=== PATIENT | male | born 1945 | race Caucasian/White ===

== ENCOUNTER 2019-06-17 05:26 | Inpatient (IN) | payer OTHER, MEDICARE ==
--- NOTE | 2019-06-17 06:03 | PDOC ---
History of Present Illness - General Chief Complaint: Nausea/Vomiting Stated Complaint: N/V/D Time Seen by Provider: 06/17/19 06:02 History Source: Patient Exam Limitations: No Limitations - History of Present Illness Initial Comments: 06/17/19 06:18 This is a 73-year-old male who comes in complaining of nausea vomiting and diarrhea times the last 3-4 hours. Patient on arrival was noted to have dry mucous membranes and was quite tachycardic to 143. Patient also was noted to have some shaking chills and temperature was 102.7. Patient denies any abdominal pain chest pain or shortness of breath. Patient is complaining of shaking and generalized weakness. Patient denies any other family members with similar symptoms. Patient is a type II diabetic on both metformin and insulin. Allergies: as per nursing notes Past Medical History: none Social history: Lives with family. No smoking. No alcohol. No illicit drugs. Surgical history: None General: No fevers or chills, no weakness, no weight loss HEENT: No change in vision. No sore throat,. No ear pain CardioVascular: no chest discomfort. No shortness of breath Respiratory:No cough, or wheezing. Gastrointestinal: no nausea, vomiting, diarrhea or constipation, No rectal bleeding Genitourinary: No dysuria, hematuria, or frequency Musculoskeletal: No joint or muscle pain or swelling Neurologic: No headache, vertigo, dizziness or loss of consciousness Psychiatric: nor depression Skin: No rashes or easy bruising Endocrine: no increased thirst or abnormal weight change Allergic: no skin or latex allergy All other systems reviewed and normal Exam: General: Well-nourished well-developed individual, no acute distress HEENT: Throat: Normal, tonsils normal, no erythema or exudate Neck: Supple, no meningeal signs, no lymphadenopathy Eyes::Pupils equal reactive and round, extraocular motion intact Chest: Nontender to palpation Cardiac: S1-S2 normal, regular rate and rhythm, no murmurs rubs or gallops Respiratory: Lungs clear to auscultation bilateral Abdomen: Soft, nondistended, normal bowel sounds, there is no tenderness on palpation diffusely Extremities: Warm, dry, no cyanosis, clubbing, or edema Skin: No rashes Neuro: Alert and oriented x3, CN II - XII intact, nonfocal exam with normal strength, normal sensation, normal reflexes, normal gait, Psych: Normal mood and affect Assessment and plan: This is a 73-year-old male who has fever of 102.7 is tachycardic with nausea vomiting and diarrhea. Patient being given fluids, Tylenol, Zofran, Sepsis workup initiated including cultures, lactic acid is venous blood gas Past History - Past Medical History Allergies/Adverse Reactions: Allergies Allergy/AdvReac Type Severity Reaction Status Date / Time levofloxacin [From Levaquin] Allergy Verified 06/17/19 05:30 Home Medications: Ambulatory Orders Aspirin [ASA -] 81 mg PO DAILY 07/31/12 Atorvastatin Ca [Lipitor] 20 mg PO HS 07/31/12 Insulin (Levemir) [Levemir Flexpen -] 13 units SQ BID 07/31/12 Lisinopril [Prinivil] 20 mg PO DAILY 07/31/12 Sitagliptin Phos/Metformin HCl [Janumet 50-1,000 mg Tablet] 1 each PO BID #0 Amlodipine Besylate 5 mg PO DAILY 06/17/19 Budesonide [Entocort EC] 9 mg PO DAILY 06/17/19 Chlorthalidone 25 mg PO DAILY 06/17/19 Insulin Lispro [Humalog] 4 unit SQ AM 06/17/19 Insulin Lispro [Humalog] 6 unit SQ BID 06/17/19 Mesalamine [Asacol Hd -] 1,600 mg PO TID 06/17/19 Omeprazole 40 mg PO DAILY 06/17/19 COPD: No Diabetes: Yes Disorders: Yes (CROHNS) HTN: Yes Hypercholesterolemia: Yes - Suicide/Smoking/Psychosocial Hx Smoking Status: Yes Smoking History: Never smoked Have you smoked in the past 12 months: Yes Number of Cigarettes Smoked Daily: 20 'Breaking Loose' booklet given: 08/21/13 Hx Alcohol Use: Yes (occasional) Substance Use Type: None *Physical Exam - Vital Signs Last Vital Signs Temp Pulse Resp BP Pulse Ox 98.2 F 143 H 24 H 110/84 94 L 06/17/19 05:46 06/17/19 05:46 06/17/19 05:46 06/17/19 05:46 06/17/19 05:46 ED Treatment Course - LABORATORY CBC & Chemistry Diagram: 06/17/19 16:27 06/17/19 16:27 *DC/Admit/Observation/Transfer Diagnosis at time of Disposition: RLL pneumonia Qualifiers: Pneumonia type: due to unspecified organism Qualified Code(s): J18.1 - Lobar pneumonia, unspecified organism Diabetes mellitus Qualifiers: Diabetes mellitus type: type 2 Diabetes mellitus detention insulin use: unspecified detention insulin use status - Discharge Dispostion Condition at time of disposition: Stable - Referrals - Patient Instructions - Post Discharge Activity
[2019-06-17] MEDS ORDERED: SODIUM CHLORIDE 1,891 ML IV ONE (06:06)
[2019-06-17] MEDS ORDERED: ACETAMINOPHEN 1000 MG/100 ML VIAL (NON FORMULARY) IVPB ONE (06:09)
[2019-06-17] MEDS ORDERED: ACETAMINOPHEN INJECTION 100 ML IVPB ONE (06:21)
[2019-06-17] MEDS ORDERED: ONDANSETRON 4 MG/2 ML VIAL IVPB ONE (06:23)
[2019-06-17] MEDS ORDERED: ONDANSETRON 4 MG/2 ML VIAL ONE (06:29)
[2019-06-17 07:22] LABS: VENOUS PC02 29 mmHg (38-52); VENOUS PO2 < 49 mmHg (28-48)
[2019-06-17 07:25] LABS: BASO % 0.3 % (0-2.0); EOS % 0.2 % (0-4.5); HEMATOCRIT 42.3 % (35.4-49); HEMOGLOBIN 14.5 GM/dL (11.7-16.9); LYMPH % 9.2 % (8-40); MCH 31.9 pg (25.7-33.7); MCHC 34.2 g/dl (32.0-35.9); MEAN CELL VOLUME 93.3 fl (80-96); MEAN PLT VOLUME 8.7 fl (7.5-11.1); MONO % 2.4 % (3.8-10.2); NEUT % 87.9 % (42.8-82.8); PLATELET COUNT 350 K/MM3 (134-434); RBC 4.54 M/mm3 (4.00-5.60); RDW 13.3 % (11.9-15.9); WHITE BLOOD COUNT 11.9 K/mm3 (4.0-10.0)
[2019-06-17 07:32] LABS: URINE APPEARANCE CLEAR; URINE BILIRUBIN NEGATIVE (NEGATIVE); URINE COLOR YELLOW; URINE GLUCOSE (UA) NEGATIVE (NEGATIVE); URINE KETONE TRACE (NEGATIVE); URINE LEUK ESTERASE NEGATIVE (NEGATIVE); URINE NITRITE NEGATIVE (NEGATIVE); URINE PROTEIN NEGATIVE (NEGATIVE); URINE UROBILINOGEN 0.2 mg/dL (0.2-1.0)
[2019-06-17] MEDS ORDERED: SODIUM CHLORIDE 1,000 ML IV STA (07:42)
[2019-06-17] MEDS ORDERED: CEFTRIAXONE 1,000 MG in DEXTROSE 5%-WATER - 50 ML IVPB ONE (07:55)
[2019-06-17] MEDS ORDERED: cefTRIAXone SODIUM 1 GM VIAL ONE (07:56)
[2019-06-17] MEDS ORDERED: AZITHROMYCIN IVPB 500 MG in DEXTROSE 5%-WATER - 250 ML IVPB ONE (07:56)
[2019-06-17 07:57] LABS: ALBUMIN 3.3 g/dl (3.4-5.0); ALK PHOS 59 U/L (45-117); ANION GAP 10 MMOL/L (8-16); BILIRUBIN,TOTAL 0.6 mg/dL (0.2-1); BLOOD UREA NITROGEN 31.6 mg/dL (7-18); CALCIUM 9.8 mg/dL (8.5-10.1); CHLORIDE 103 mmol/L (98-107); CO2 25 mmol/L (21-32); CREATININE 1.5 mg/dL (0.55-1.3); GLUCOSE,RANDOM 133 mg/dL (74-106); POTASSIUM 4.4 mmol/L (3.5-5.1); SGOT/AST 17 U/L (15-37); SGPT/ALT 24 U/L (13-61); SODIUM 138 mmol/L (136-145); TOT PROT 6.1 g/dl (6.4-8.2)
[2019-06-17] MEDS: SODIUM CHLORIDE 1,000 ML IV SCH (08:03)
[2019-06-17] MEDS ORDERED: AZITHROMYCIN 500 MG VIAL IVPB ONE (08:05)
--- NOTE | 2019-06-17 08:11 | PDOC ---
*Physical Exam - Vital Signs Last Vital Signs Temp Pulse Resp BP Pulse Ox 97.6 F 109 H 21 H 119/60 95 06/17/19 07:25 06/17/19 07:25 06/17/19 07:25 06/17/19 07:25 06/17/19 07:25 - Physical Exam General Appearance: Yes: Nourished, Appropriately Dressed, Moderate Distress HEENT: positive: Pharynx Normal (Mildly hyperemic pharynx ) Neck: positive: Supple Respiratory/Chest: positive: Rhonchi (Wheezing and ronchi right lower base), Wheezing ED Treatment Course - LABORATORY CBC & Chemistry Diagram: 06/17/19 06:15 06/17/19 06:15 - ADDITIONAL ORDERS Additional order review: Laboratory Results 06/17/19 06/17/19 06/17/19 07:43 06:30 06:15 PTT (Actin FS) VBG pH POC VBG pCO2 POC VBG pO2 VBG HCO3 VBG O2 Sat (Marcos) VBG Base Excess Sodium Potassium Chloride Carbon Dioxide Anion Gap BUN Creatinine Est GFR (CKD-EPI)AfAm Est GFR (CKD-EPI)NonAf POC Glucometer 89 Random Glucose Lactic Acid Calcium Total Bilirubin AST ALT Alkaline Phosphatase Creatine Kinase Troponin I Total Protein Albumin Urine Color Yellow Cancelled Urine Appearance Clear Cancelled Urine pH 5.0 Cancelled Ur Specific [place] 1.019 Urine Protein Negative Cancelled Urine Glucose (UA) Negative Cancelled Urine Ketones Trace H Cancelled Urine Blood Negative Cancelled Urine Nitrite Negative Cancelled Urine Bilirubin Negative Cancelled Urine Urobilinogen 0.2 Cancelled Ur Leukocyte Esterase Negative Cancelled 06/17/19 06/17/19 06/17/19 06:15 06:15 06:15 PTT (Actin FS) VBG pH 7.50 H POC VBG pCO2 29 L POC VBG pO2 < 49 H VBG HCO3 23 VBG O2 Sat (Marcos) 84.5 H VBG Base Excess 1.8 Sodium Potassium Chloride Carbon Dioxide Anion Gap BUN Creatinine Est GFR (CKD-EPI)AfAm Est GFR (CKD-EPI)NonAf POC Glucometer Random Glucose Lactic Acid 5.1 H* Calcium Total Bilirubin AST ALT Alkaline Phosphatase Creatine Kinase 96 Troponin I Total Protein Albumin Urine Color Urine Appearance Urine pH Ur Specific [place] Urine Protein Urine Glucose (UA) Urine Ketones Urine Blood Urine Nitrite Urine Bilirubin Urine Urobilinogen Ur Leukocyte Esterase 06/17/19 06/17/19 06:15 06:15 PTT (Actin FS) 27.4 VBG pH POC VBG pCO2 POC VBG pO2 VBG HCO3 VBG O2 Sat (Marcos) VBG Base Excess Sodium 138 Potassium 4.4 Chloride 103 Carbon Dioxide 25 Anion Gap 10 BUN 31.6 H Creatinine 1.5 H Est GFR (CKD-EPI)AfAm 53.14 Est GFR (CKD-EPI)NonAf 45.85 POC Glucometer Random Glucose 133 H Lactic Acid Calcium 9.8 Total Bilirubin 0.6 AST 17 ALT 24 Alkaline Phosphatase 59 Creatine Kinase 100 Troponin I < 0.02 Total Protein 6.1 L Albumin 3.3 L Urine Color Urine Appearance Urine pH Ur Specific [place] Urine Protein Urine Glucose (UA) Urine Ketones Urine Blood Urine Nitrite Urine Bilirubin Urine Urobilinogen Ur Leukocyte Esterase 06/17/19 06/17/19 07:43 06:15 RBC 4.54 MCV 93.3 MCHC 34.2 RDW 13.3 MPV 8.7 Neutrophils % 87.9 H Lymphocytes % 9.2 Monocytes % 2.4 L Eosinophils % 0.2 Basophils % 0.3 POC Glucometer 89 - RADIOLOGY Chest X-Ray Result: Pneumonia Radiograph Interpretation: same like ours 06/17/19 08:07 - Medications Given in the ED: ED Medications Discontinued Medications Generic Name Dose Route Start Last Admin Trade Name Yang PRN Reason Stop Dose Admin Acetaminophen 1,000 mg 06/17/19 06:09 06/17/19 06:28 Ofirmev Injection - IVPB 06/17/19 06:10 1,000 mg ONCE ONE Administration Sodium Chloride 1,891 mls @ 945.5 mls/hr 06/17/19 06:06 06/17/19 06:00 Normal Saline - 30 ml/kg infuse over 2 hr (1891 ml) 06/17/19 08:05 945.5 mls/hr IV Administration ONCE ONE Ondansetron HCl 8 mg 06/17/19 06:23 06/17/19 06:31 Zofran Injection IVPB 06/17/19 06:24 8 mg ONCE ONE Administration Progress Note - Progress Note Progress Note: After my exam and CXR review, blood work included, dg of RLL Pneumonia, DM *DC/Admit/Observation/Transfer Diagnosis at time of Disposition: RLL pneumonia Qualifiers: Pneumonia type: due to unspecified organism Qualified Code(s): J18.1 - Lobar pneumonia, unspecified organism Diabetes mellitus Qualifiers: Diabetes mellitus type: type 2 Diabetes mellitus ferry terminal agent insulin use: unspecified ferry terminal agent insulin use status - Discharge Dispostion Condition at time of disposition: Stable Decision to Admit order: Yes - Referrals - Patient Instructions - Post Discharge Activity
[2019-06-17 08:37] LABS: INR 1.01 (0.83-1.09); PROTHROMBIN TIME (PATIENT) 11.9 SEC (9.7-13.0)
[2019-06-17] MEDS ORDERED: SODIUM CHLORIDE 500 ML IV STA (10:45)
--- NOTE | 2019-06-17 10:52 | HP ---
CHIEF COMPLAINT: Fever, chills, cough PCP: Shona Christensen HISTORY OF PRESENT ILLNESS: 73 year-old male with a PMH significant for HTN, Type II IDDM, and Crohn's disease who presented to the ED for evaluation of cough, fever, and shaking chills. Patient was seen by PCP 5 days ago for cough. CXR was negative at that time and he was not started on antibiotics. He continued with a mild, dry cough but otherwise felt well until this morning at 2:00a.m when he awoke, vomited x 6 episodes, loose, light-color stools x 4 episodes, and developed shaking chills. His temp at home was 102.7. His brought him to the ED. ER course was notable for: (1) T102.7, p143, WBC 11.9k, RR 24, RML infiltrate on CXR, lactic acid 5.1 (2) NS x 2L (3) Ceftriaxone x 1; azithro x 1 Recent Travel: No PAST MEDICAL HISTORY: Hypertension Type II IDDM Crohn's disease Polio w/right leg atrophy Multiple right ankle fractures Right patellar fracture PAST SURGICAL HISTORY: Social History: Smoking: on and off smoked for 28 years, quit ~ 3 years ago Alcohol: no Drugs: no Allergies levofloxacin [From Levaquin] Allergy (Verified 06/17/19 05:30) HOME MEDICATIONS: Home Medications Medication Instructions Recorded Aspirin [ASA -] 81 mg PO DAILY 07/31/12 Atorvastatin Ca [Lipitor] 20 mg PO HS 07/31/12 Insulin (Levemir) [Levemir Flexpen 13 units SQ BID 07/31/12 -] Lisinopril [Prinivil] 20 mg PO DAILY 07/31/12 Sitagliptin Phos/Metformin HCl 1 each PO BID #0 08/21/13 [Janumet 50-1,000 mg Tablet] Amlodipine Besylate 5 mg PO DAILY 06/17/19 Budesonide [Entocort EC] 9 mg PO DAILY 06/17/19 Chlorthalidone 25 mg PO DAILY 06/17/19 Insulin Lispro [Humalog] 4 unit SQ AM 06/17/19 Insulin Lispro [Humalog] 6 unit SQ BID 06/17/19 Mesalamine [Asacol Hd -] 1,600 mg PO TID 09/20/19 Omeprazole 40 mg PO DAILY 06/17/19 REVIEW OF SYSTEMS CONSTITUTIONAL: +fever, chills, profound weakness Absent: fever, chills, diaphoresis, generalized weakness, malaise, loss of appetite, weight change HEENT: Absent: rhinorrhea, nasal congestion, throat pain, throat swelling, difficulty swallowing, mouth swelling, ear pain, eye pain, visual changes CARDIOVASCULAR: Absent: chest pain, syncope, palpitations, irregular heart rate, lightheadedness , peripheral edema RESPIRATORY: +tachypnea, SOB Absent: cough, shortness of breath, dyspnea with exertion, orthopnea, wheezing, stridor, hemoptysis GASTROINTESTINAL: +nausea, vomiting, diarrhea Absent: abdominal pain, abdominal distension, nausea, vomiting, diarrhea, constipation, melena, hematochezia GENITOURINARY: Absent: dysuria, frequency, urgency, hesitancy, hematuria, flank pain, genital pain MUSCULOSKELETAL: Absent: myalgia, arthralgia, joint swelling, back pain, neck pain SKIN: Absent: rash, itching, pallor HEMATOLOGIC/IMMUNOLOGIC: Absent: easy bleeding, easy bruising, lymphadenopathy, frequent infections ENDOCRINE: Absent: unexplained weight gain, unexplained weight loss, heat intolerance, cold intolerance NEUROLOGIC: Absent: headache, focal weakness or paresthesias, dizziness, unsteady gait, seizure, mental status changes, bladder or bowel incontinence PSYCHIATRIC: Absent: anxiety, depression, suicidal or homicidal ideation, hallucinations. PHYSICAL EXAMINATION Vital Signs - 24 hr 06/17/19 06/17/19 06/17/19 05:46 06:06 06:30 Temperature 98.2 F 102.7 F H Pulse Rate 143 H Pulse Rate [ 115 H Apical] Respiratory 24 H 24 H Rate Blood Pressure 110/84 Blood Pressure 117/61 [Arm] O2 Sat by Pulse 94 L 94 L Oximetry (%) 06/17/19 06/17/19 06/17/19 06:44 06:59 07:25 Temperature 97.6 F Pulse Rate Pulse Rate [ 115 H 114 H 109 H Apical] Respiratory 20 25 H 21 H Rate Blood Pressure Blood Pressure 116/57 L 110/61 119/60 [Arm] O2 Sat by Pulse 94 L 94 L 95 Oximetry (%) 06/17/19 06/17/19 08:15 08:45 Temperature Pulse Rate Pulse Rate [ 111 H 110 H Apical] Respiratory 18 21 H Rate Blood Pressure Blood Pressure 117/61 112/60 [Arm] O2 Sat by Pulse 93 L 96 Oximetry (%) GENERAL: Awake, alert, and fully oriented. Ill-appearing. HEAD: Normal with no signs of trauma. EYES: Pupils equal, round and reactive to light, extraocular movements intact, sclera anicteric, conjunctiva clear. No lid lag. LUNGS: Diminished breath sounds and rales on the right HEART: Regular rate and rhythm, S1 and S2 ABDOMEN: Soft, nontender, not distended UPPER EXTREMITIES: 2+ pulses, warm, well-perfused. No cyanosis. No clubbing. No peripheral edema. LOWER EXTREMITIES: 2+ pulses, warm, well-perfused. No calf tenderness. No peripheral edema. Right leg is smaller than left, rotated outward NEUROLOGICAL: Cranial nerves II-XII intact. Normal speech. Laboratory Results - last 24 hr 06/17/19 06/17/19 06/17/19 06:15 06:15 06:15 WBC 11.9 H RBC 4.54 Hgb 14.5 Hct 42.3 MCV 93.3 MCH 31.9 MCHC 34.2 RDW 13.3 Plt Count 350 MPV 8.7 Absolute Neuts (auto) 10.4 H Neutrophils % 87.9 H Lymphocytes % 9.2 Monocytes % 2.4 L Eosinophils % 0.2 Basophils % 0.3 Nucleated RBC % 0 PT with INR INR PTT (Actin FS) 27.4 VBG pH POC VBG pCO2 POC VBG pO2 VBG HCO3 VBG O2 Sat (Marcos) VBG Base Excess Sodium 138 Potassium 4.4 Chloride 103 Carbon Dioxide 25 Anion Gap 10 BUN 31.6 H Creatinine 1.5 H Est GFR (CKD-EPI)AfAm 53.14 Est GFR (CKD-EPI)NonAf 45.85 POC Glucometer Random Glucose 133 H Lactic Acid Calcium 9.8 Total Bilirubin 0.6 AST 17 ALT 24 Alkaline Phosphatase 59 Creatine Kinase 100 Troponin I < 0.02 Total Protein 6.1 L Albumin 3.3 L Urine Color Urine Appearance Urine pH Ur Specific [place] Urine Protein Urine Glucose (UA) Urine Ketones Urine Blood Urine Nitrite Urine Bilirubin Urine Urobilinogen Ur Leukocyte Esterase 06/17/19 06/17/19 06/17/19 06:15 06:15 06:15 WBC RBC Hgb Hct MCV MCH MCHC RDW Plt Count MPV Absolute Neuts (auto) Neutrophils % Lymphocytes % Monocytes % Eosinophils % Basophils % Nucleated RBC % PT with INR 11.90 INR 1.01 PTT (Actin FS) VBG pH 7.50 H POC VBG pCO2 29 L POC VBG pO2 < 49 H VBG HCO3 23 VBG O2 Sat (Marcos) 84.5 H VBG Base Excess 1.8 Sodium Potassium Chloride Carbon Dioxide Anion Gap BUN Creatinine Est GFR (CKD-EPI)AfAm Est GFR (CKD-EPI)NonAf POC Glucometer Random Glucose Lactic Acid 5.1 H* Calcium Total Bilirubin AST ALT Alkaline Phosphatase Creatine Kinase Troponin I Total Protein Albumin Urine Color Urine Appearance Urine pH Ur Specific [place] Urine Protein Urine Glucose (UA) Urine Ketones Urine Blood Urine Nitrite Urine Bilirubin Urine Urobilinogen Ur Leukocyte Esterase 06/17/19 06/17/19 06/17/19 06:15 06:15 06:30 WBC RBC Hgb Hct MCV MCH MCHC RDW Plt Count MPV Absolute Neuts (auto) Neutrophils % Lymphocytes % Monocytes % Eosinophils % Basophils % Nucleated RBC % PT with INR INR PTT (Actin FS) VBG pH POC VBG pCO2 POC VBG pO2 VBG HCO3 VBG O2 Sat (Marcos) VBG Base Excess Sodium Potassium Chloride Carbon Dioxide Anion Gap BUN Creatinine Est GFR (CKD-EPI)AfAm Est GFR (CKD-EPI)NonAf POC Glucometer Random Glucose Lactic Acid Calcium Total Bilirubin AST ALT Alkaline Phosphatase Creatine Kinase 96 Troponin I Total Protein Albumin Urine Color Cancelled Yellow Urine Appearance Cancelled Clear Urine pH Cancelled 5.0 Ur Specific [place] 1.019 Urine Protein Cancelled Negative Urine Glucose (UA) Cancelled Negative Urine Ketones Cancelled Trace H Urine Blood Cancelled Negative Urine Nitrite Cancelled Negative Urine Bilirubin Cancelled Negative Urine Urobilinogen Cancelled 0.2 Ur Leukocyte Esterase Cancelled Negative 06/17/19 07:43 WBC RBC Hgb Hct MCV MCH MCHC RDW Plt Count MPV Absolute Neuts (auto) Neutrophils % Lymphocytes % Monocytes % Eosinophils % Basophils % Nucleated RBC % PT with INR INR PTT (Actin FS) VBG pH POC VBG pCO2 POC VBG pO2 VBG HCO3 VBG O2 Sat (Marcos) VBG Base Excess Sodium Potassium Chloride Carbon Dioxide Anion Gap BUN Creatinine Est GFR (CKD-EPI)AfAm Est GFR (CKD-EPI)NonAf POC Glucometer 89 Random Glucose Lactic Acid Calcium Total Bilirubin AST ALT Alkaline Phosphatase Creatine Kinase Troponin I Total Protein Albumin Urine Color Urine Appearance Urine pH Ur Specific [place] Urine Protein Urine Glucose (UA) Urine Ketones Urine Blood Urine Nitrite Urine Bilirubin Urine Urobilinogen Ur Leukocyte Esterase ASSESSMENT/PLAN 73 year-old male with a PMH significant for HTN, Type II IDDM, and Crohn's disease. Admitted for severe sepsis likely secondary to community-acquired pneumonia. Severe sepsis likely secondary to community acquired pneumonia --T102.7, p143, WBC 11.9k, RR 24, RML infiltrate on CXR, lactic acid 5.1 --fluid resuscitated 2.5L NS --given ceftriaxone and azithro in ED, switched to Zosyn --repeat lactic acid --repeat labs --repeat CXR --CT chest, abdomen, pelvis Hypertension --hold anti-hypertensives due to sepsis Type II IDDM --Novolog sliding scale coverage --no appetite, not eating; fingersticks q4h Crohn's disease --not in active flare --takes budesonide, a corticosteroid equivalent; not on formulary; ask family to bring in --continue mesalamine FEN Fluids: NS @ 75mL/hr Electrolytes: replete as indicated Nutrition: diabetic diet DVT prophylaxis: subq heparin Dispo: continues to require inpatient care. Full code. Visit type - Emergency Visit Emergency Visit: Yes ED Registration Date: 06/17/19 Care time: The patient presented to the Emergency Department on the above date and was hospitalized for further evaluation of their emergent condition. - New Patient This patient is new to me today: Yes Date on this admission: 06/18/19 - Critical Care Critical Care patient: Yes Total Critical Care Time (in minutes): 120 Critical Care Statement: The care of this patient involved high complexity decision making to prevent further life threatening deterioration of the patient 's condition and/or to evaluate & treat vital organ system(s) failure or risk of failure.
[2019-06-17 13:22] LABS: ARTERIAL BLD GAS O2 SATURATION 97.1 % (95-98); ARTERIAL BLOOD GAS PO2 89.4 mmHg (80-100); ARTERIAL BLOOD GAS pH 7.45 (7.35-7.45)
[2019-06-17] MEDS: PIPERACILLIN/TAZOB 3.375 GM 3.375 GM in DEXTROSE 5%-WATER - 50 ML IVPB SCH ×2 (13:30→21:49)
--- NOTE | 2019-06-17 14:09 | EKG ---
Test Reason : Blood Pressure : / mmHG Vent. Rate : 115 BPM Atrial Rate : 115 BPM P-R Int : 134 ms QRS Dur : 066 ms QT Int : 306 ms P-R-T Axes : 047 059 033 degrees QTc Int : 423 ms SINUS TACHYCARDIA OTHERWISE NORMAL ECG NO PREVIOUS ECGS AVAILABLE Confirmed by MEL AADME MD ([id number]) on 06/17/2019 2:09:35 PM Referred By: TIFFANY GUZMAN Confirmed By:MEL ADAME MD
--- NOTE | 2019-06-17 15:18 | CON.ID ---
Consult Consult Specialty:: infectious diseases Referred by:: Naya Reason for Consultation:: sepsis,pneumonia - History of Present Illness Chief Complaint: sob ,cough,fever,chills History of Present Illness: 73 year-old male with a PMH significant for HTN, Type II IDDM, and Crohn's disease on prednisone, admitted because of cough, fever, and shaking chills. Patient was seen by PCP last week for cough. CXR was negative at that time and he was not started on antibiotics. Last night patient spiked a fever to 102.7 and had shaking chills and became sob. patient also mentions that he has been having gerd symptoms for some time currently patient feels better has been given zosyn - History Source History Provided By: Patient Limitations to Obtaining History: No Limitations - Past Medical History Cardio/Vascular: Yes: HTN Gastrointestinal: Yes: Crohn's Disease Endocrine: Yes: Diabetes Mellitus - Alcohol/Substance Use Hx Alcohol Use: Yes (occasional) - Smoking History Smoking history: Never smoked Have you smoked in the past 12 months: Yes Aproximately how many cigarettes per day: 20 Home Medications - Allergies Allergies/Adverse Reactions: Allergies Allergy/AdvReac Type Severity Reaction Status Date / Time levofloxacin [From Levaquin] Allergy Verified 06/17/19 05:30 - Home Medications Home Medications: Ambulatory Orders Aspirin [ASA -] 81 mg PO DAILY 07/31/12 Atorvastatin Ca [Lipitor] 20 mg PO HS 07/31/12 Insulin (Levemir) [Levemir Flexpen -] 13 units SQ BID 07/31/12 Lisinopril [Prinivil] 20 mg PO DAILY 07/31/12 Sitagliptin Phos/Metformin HCl [Janumet 50-1,000 mg Tablet] 1 each PO BID #0 Amlodipine Besylate 5 mg PO DAILY 06/17/19 Budesonide [Entocort EC] 9 mg PO DAILY 06/17/19 Chlorthalidone 25 mg PO DAILY 06/17/19 Insulin Lispro [Humalog] 4 unit SQ AM 06/17/19 Insulin Lispro [Humalog] 6 unit SQ BID 06/17/19 Mesalamine [Asacol Hd -] 1,600 mg PO TID 06/17/19 Omeprazole 40 mg PO DAILY 06/17/19 Review of Systems - Review of Systems Constitutional: reports: Chills, Fever Eyes: reports: No Symptoms HENT: reports: No Symptoms Neck: reports: No Symptoms Cardiovascular: reports: No Symptoms Respiratory: reports: Cough, SOB, Other Gastrointestinal: reports: No Symptoms Genitourinary: reports: No Symptoms Musculoskeletal: reports: No Symptoms Integumentary: reports: No Symptoms Neurological: reports: No Symptoms Endocrine: reports: No Symptoms Hematology/Lymphatic: reports: No Symptoms Psychiatric: reports: No Symptoms Physical Exam Vital Signs: Vital Signs Temperature 97.9 F 06/17/19 13:45 Pulse Rate 93 H 06/17/19 13:45 Respiratory Rate 17 06/17/19 13:45 Blood Pressure 106/60 06/17/19 13:45 O2 Sat by Pulse Oximetry (%) 94 L 06/17/19 13:45 Constitutional: Yes: Calm, Mild Distress Eyes: Yes: Conjunctiva Clear HENT: Yes: Atraumatic, Normocephalic Neck: Yes: Supple, Trachea Midline Cardiovascular: Yes: Regular Rate and Rhythm Respiratory: Yes: Regular, Poor Air Entry (bases) Gastrointestinal: Yes: Normal Bowel Sounds, Soft Musculoskeletal: Yes: WNL Extremities: Yes: WNL Integumentary: Yes: WNL Neurological: Yes: Alert, Oriented Psychiatric: Yes: Alert, Oriented Labs: CBC, BMP 06/17/19 06:15 06/17/19 06:15 Imaging - Results Chest X-ray: Report Reviewed, Image Reviewed Assessment/Plan patient with multiple medical problems immunocompromised and on predinsone, coming to the hospital with acute onset of sob and fever found to ahve an infiltrate on the lung and lactic acidosis probably leaning towars pneumonia also having gerd please send d dimer on the patient,depending on that a ct of the chest continue zosyn resp support influenza screen hydraion monitor lactic acid await for all cx reports
[2019-06-17 16:41] LABS: HEMATOCRIT 38.7 % (35.4-49); HEMOGLOBIN 13.4 GM/dl (11.7-16.9); MCH 32.9 pg (25.7-33.7); MCHC 34.6 g/dl (32.0-35.9); MEAN CELL VOLUME 94.9 fl (80-96); MEAN PLT VOLUME 8.9 fl (7.5-11.1); PLATELET COUNT 226 K/MM3 (134-434); RBC 4.07 M/mm3 (4.00-5.60); RDW 12.9 % (11.9-15.9); WHITE BLOOD COUNT 23.3 K/mm3 (4.0-10.8)
[2019-06-17] MEDS ORDERED: PIPERACILLIN/TAZOBACTAM 3.375 GM VIAL IVPB ONE (17:00)
[2019-06-17] MEDS ORDERED: DEXTROSE 5%-WATER - 50 ML IVPB ONE (17:00)
[2019-06-17 17:12] LABS: CREATININE 1.2 mg/dl (0.55-1.3); POTASSIUM 4.9 mmol/L (3.5-5.1)
[2019-06-17 17:13] LABS: ALBUMIN 2.9 g/dl (3.4-5.0); BILIRUBIN,TOTAL 0.9 mg/dl (0.2-1); CALCIUM 8.3 mg/dl (8.5-10); MAGNESIUM 0.9 mg/dL (1.8-2.4)
[2019-06-17 17:14] LABS: TOT PROT 5.3 g/dl (6.4-8.2)
[2019-06-17] MEDS ORDERED: MAGNESIUM SULF 50% (8.12 MEQ/2 ML-1 GM VIAL) IVPB ONE (17:18)
[2019-06-17 17:28] LABS: PLATELET ESTIMATE ADEQUATE
[2019-06-17 18:32] VITALS: BMI 27.6
[2019-06-17] MEDS: ACETAMINOPHEN 1000 MG/100 ML VIAL (NON FORMULARY) IVPB SCH ×2 (21:49→23:57)
[2019-06-17] MEDS: HEPARIN NA (PORCINE) 5,000 UNITS/ML 1ML VIAL SQ SCH (21:50)
[2019-06-18] MEDS ORDERED: PIPERACILLIN/TAZOBACTAM 3.375 GM VIAL IVPB ONE ×2 (01:54→08:54)
[2019-06-18] MEDS ORDERED: DEXTROSE 5%-WATER - 50 ML IVPB ONE ×2 (01:54→08:55)
[2019-06-18] MEDS: PIPERACILLIN/TAZOB 3.375 GM 3.375 GM in DEXTROSE 5%-WATER - 50 ML IVPB SCH ×3 (02:00→17:29)
[2019-06-18] MEDS: HEPARIN NA (PORCINE) 5,000 UNITS/ML 1ML VIAL SQ SCH ×3 (02:00→18:35)
[2019-06-18] MEDS: ACETAMINOPHEN 1000 MG/100 ML VIAL (NON FORMULARY) IVPB SCH ×2 (06:32→12:05)
[2019-06-18] MEDS: MESALAMINE 800 MG TABLET.DR PO SCH ×3 (06:32→21:34)
[2019-06-18] MEDS: SODIUM CHLORIDE 1,000 ML IV SCH (08:20)
--- NOTE | 2019-06-18 08:59 | PN ---
Physical Exam: SUBJECTIVE: Patient seen and examined, reports feeling better today, coughing up clear sputum, denies cp, sob, palpitations, abdominal pain, N/V/D or urinary symptoms. OBJECTIVE: Vital Signs Period Temp Pulse Resp BP Sys/Moe Pulse Ox Last 24 Hr 97.8 F-99.9 F 78-108 17-22 99-143/44-71 84-98 GENERAL: The patient is awake, alert, and fully oriented, in no acute distress. HEAD: Normal with no signs of trauma. EYES: PERRL, extraocular movements intact, sclera anicteric, conjunctiva clear. No ptosis. ENT: Ears normal, nares patent, oropharynx clear without exudates, moist mucous membranes. NECK: Trachea midline, full range of motion, supple. LUNGS: positive rales, no wheezing no accessory muscle use. HEART: Regular rate and rhythm, S1, S2 without murmur, rub or gallop. ABDOMEN: Soft, nontender, nondistended, normoactive bowel sounds, no guarding, no rebound, no hepatosplenomegaly, no masses. EXTREMITIES: 2+ pulses, warm, well-perfused, no edema. NEUROLOGICAL: Cranial nerves II through XII grossly intact. Normal speech, gait not observed. PSYCH: Normal mood, normal affect. SKIN: Warm, dry, normal turgor, no rashes or lesions noted Laboratory Results - last 24 hr 06/17/19 06/17/19 06/17/19 10:00 12:00 16:27 WBC 23.3 H RBC 4.07 Hgb 13.4 Hct 38.7 MCV 94.9 MCH 32.9 MCHC 34.6 RDW 12.9 Plt Count 226 D MPV 8.9 Absolute Neuts (auto) 20.5 Neutrophils % No Result Required. Neutrophils % (Manual) 76.0 Band Neutrophils % 12.0 H Lymphocytes % No Result Required. Lymphocytes % (Manual) 7.0 L Monocytes % (Manual) 5 Platelet Estimate Adequate Anticoagulation Therapy No Result Required. Puncture Site No Result Required. ABG pH 7.45 ABG pCO2 at Pt Temp 35.0 ABG pO2 at Pt Temp 89.4 ABG HCO3 24.1 ABG O2 Sat (Measured) 97.1 ABG O2 Content 19.5 ABG Base Excess 1.0 John Test No Result Required. O2 Delivery Device No Result Required. Oxygen Flow Rate No Result Required. Vent Mode No Result Required. Vent Rate No Result Required. Mechanical Rate No Result Required. Pressure Support Vent No Result Required. Sodium Potassium Chloride Carbon Dioxide Anion Gap BUN Creatinine Est GFR (CKD-EPI)AfAm Est GFR (CKD-EPI)NonAf POC Glucometer Random Glucose Lactic Acid 1.5 Calcium Magnesium Total Bilirubin AST ALT Alkaline Phosphatase Total Protein Albumin Influenza A (Rapid) Influenza B (Rapid) 06/17/19 06/17/19 06/17/19 16:27 16:27 16:49 WBC RBC Hgb Hct MCV MCH MCHC RDW Plt Count MPV Absolute Neuts (auto) Neutrophils % Neutrophils % (Manual) Band Neutrophils % Lymphocytes % Lymphocytes % (Manual) Monocytes % (Manual) Platelet Estimate Anticoagulation Therapy Puncture Site ABG pH ABG pCO2 at Pt Temp ABG pO2 at Pt Temp ABG HCO3 ABG O2 Sat (Measured) ABG O2 Content ABG Base Excess John Test O2 Delivery Device Oxygen Flow Rate Vent Mode Vent Rate Mechanical Rate Pressure Support Vent Sodium 136 Potassium 4.9 Chloride 105 Carbon Dioxide 23 Anion Gap 8 BUN 24.0 H Creatinine 1.2 Est GFR (CKD-EPI)AfAm 69.60 Est GFR (CKD-EPI)NonAf 60.05 POC Glucometer 86 Random Glucose 86 Lactic Acid 2.3 H* Calcium 8.3 L Magnesium 0.9 L Total Bilirubin 0.9 AST 19 ALT 17 Alkaline Phosphatase 43 L Total Protein 5.3 L Albumin 2.9 L Influenza A (Rapid) Influenza B (Rapid) 06/17/19 06/18/19 06/18/19 22:36 06:04 Unknown WBC RBC Hgb Hct MCV MCH MCHC RDW Plt Count MPV Absolute Neuts (auto) Neutrophils % Neutrophils % (Manual) Band Neutrophils % Lymphocytes % Lymphocytes % (Manual) Monocytes % (Manual) Platelet Estimate Anticoagulation Therapy Puncture Site ABG pH ABG pCO2 at Pt Temp ABG pO2 at Pt Temp ABG HCO3 ABG O2 Sat (Measured) ABG O2 Content ABG Base Excess John Test O2 Delivery Device Oxygen Flow Rate Vent Mode Vent Rate Mechanical Rate Pressure Support Vent Sodium Potassium Chloride Carbon Dioxide Anion Gap BUN Creatinine Est GFR (CKD-EPI)AfAm Est GFR (CKD-EPI)NonAf POC Glucometer 88 80 Random Glucose Lactic Acid Calcium Magnesium Total Bilirubin AST ALT Alkaline Phosphatase Total Protein Albumin Influenza A (Rapid) Negative Influenza B (Rapid) Negative Active Medications Generic Name Dose Route Start Last Admin Trade Name Yang PRN Reason Stop Dose Admin Acetaminophen 1,000 mg 06/17/19 17:45 06/18/19 06:32 Ofirmev Injection - IVPB 06/18/19 11:46 1,000 mg Q6H STACY Administration Aspirin 81 mg 06/18/19 10:00 Asa - PO DAILY STACY Atorvastatin Calcium 20 mg 06/18/19 22:00 Lipitor - PO HS STACY Heparin Sodium (Porcine) 5,000 unit 06/17/19 18:00 06/18/19 02:00 Heparin - SQ 5,000 unit Q8H-IV STACY Administration Sodium Chloride 1,000 mls @ 75 mls/hr 06/17/19 08:00 06/17/19 08:03 Normal Saline - IV 75 mls/hr ASDIR STACY Administration Piperacillin Sod/Tazobactam 50 mls @ 100 mls/hr 06/17/19 13:15 06/18/19 02:00 Sod 3.375 gm/ Dextrose IVPB 100 mls/hr Q8H-IV STACY Administration Protocol Mesalamine 1,600 mg 06/18/19 06:00 06/18/19 06:32 Asacol Hd - PO 1,600 mg TID STACY Administration Non-Formulary Medication 9 mg 06/18/19 10:00 Budesonide [Entocort Ec] PO DAILY STACY Pantoprazole Sodium 40 mg 06/18/19 10:00 Protonix - PO DAILY [facility] Microbiology 06/17/19 06:15 Blood - Peripheral Venous Blood Culture - Preliminary NO GROWTH OBTAINED AFTER 24 HOURS, INCUBATION TO CONTINUE FOR 4 DAYS. 06/17/19 06:15 Blood - Peripheral Venous Blood Culture - Preliminary NO GROWTH OBTAINED AFTER 24 HOURS, INCUBATION TO CONTINUE FOR 4 DAYS. Urine culture pending Legionella pending * IMAGING CTA chest : No PE, Multifocal right upper, middle and lower lobe pneumonia CT abdomen/pelvis: reviewed, no acute pathology CxR: RML infiltrate ASSESSMENT/PLAN: 73 year-old male with a PMH significant for HTN, Type II IDDM, and Crohn's disease on PREDNISONE ,Admitted for severe sepsis likely secondary to community- acquired pneumonia. *Severe sepsis likely secondary to community acquired pneumonia -MAx T102.7, p143, WBC 11.9k, RR 24, lactic acid 5.1 - Afebrile , wbc 11.9> 23.3 >18 -s/p fluid resuscitated 2.5L NS -s/p ceftriaxone and azithro in ED, switched to Zosyn -repeat lactic acid normalized - will f/u on labs - Influenza ruled out - BC preliminary neg - T.B mildly elevated - likely reactive due to sepsis- asymptomatic *Hypertension- low BP improved - will restart on home dose - will monitor BP closely *Type II IDDM -poor PO intake - FS Ac & HS -Novolog sliding scale coverage *Crohn's disease- stable,not in active flare -takes budesonide( corticosteroid equivalent) not on formulary; ask family to bring in -continue mesalamine FEN Fluids: NS @ 75mL/hr Electrolytes: replete as indicated Nutrition: diabetic diet Mg 1.5 - replaced DVT prophylaxis: subq heparin Dispo: continues to require inpatient care. Full code. Visit type - Emergency Visit Emergency Visit: Yes ED Registration Date: 06/17/19 Care time: The patient presented to the Emergency Department on the above date and was hospitalized for further evaluation of their emergent condition. - New Patient This patient is new to me today: No - Critical Care Critical Care patient: No
[2019-06-18 09:00] LABS: EOS % 0.5 % (0-4.5); HEMATOCRIT 35.7 % (35.4-49); HEMOGLOBIN 12.3 GM/dl (11.7-16.9); LYMPH % 7.3 % (8-40); MCH 33.1 pg (25.7-33.7); MCHC 34.5 g/dl (32.0-35.9); MEAN CELL VOLUME 96.1 fl (80-96); MEAN PLT VOLUME 8.9 fl (7.5-11.1); MONO % 3.4 % (3.8-10.2); NEUT % 88.8 % (42.8-82.8); PLATELET COUNT 277 K/MM3 (134-434); RBC 3.72 M/mm3 (4.00-5.60); RDW 13.1 % (11.9-15.9); WHITE BLOOD COUNT 18.7 K/mm3 (4.0-10.8)
[2019-06-18 09:02] LABS: ALBUMIN 2.6 g/dl (3.4-5.0); BILIRUBIN,TOTAL 1.1 mg/dl (0.2-1); CALCIUM 8.2 mg/dl (8.5-10); CREATININE 1.3 mg/dl (0.55-1.3); MAGNESIUM 1.5 mg/dL (1.8-2.4); POTASSIUM 4.1 mmol/L (3.5-5.1)
[2019-06-18] MEDS ORDERED: MAGNESIUM SULF 50% (8.12 MEQ/2 ML-1 GM VIAL) IVPB ONE (09:33)
[2019-06-18] MEDS: ASPIRIN 81 MG CHEWABLE TABLETS PO SCH (10:05)
[2019-06-18] MEDS: PANTOPRAZOLE 40 MG TABLET (FP) PO SCH (10:05)
--- NOTE | 2019-06-18 13:25 | PN ---
Progress Note, Physician - Current Medication List Current Medications: Active Medications Aspirin (Asa -) 81 mg PO DAILY STACY Atorvastatin Calcium (Lipitor -) 20 mg PO HS STACY Heparin Sodium (Porcine) (Heparin -) 5,000 unit SQ Q8H-IV STACY Last Admin: 06/18/19 02:00 Dose: 5,000 unit Sodium Chloride (Normal Saline -) 1,000 mls @ 75 mls/hr IV ASDIR STACY Last Admin: 06/17/19 08:03 Dose: 75 mls/hr Piperacillin Sod/Tazobactam (Sod 3.375 gm/ Dextrose) 50 mls @ 100 mls/hr IVPB Q8H-IV STACY; Protocol Last Admin: 06/18/19 02:00 Dose: 100 mls/hr Insulin Aspart (Novolog Vial Sliding Scale -) 1 vial SQ ACHS STACY; Protocol Mesalamine (Asacol Hd -) 1,600 mg PO TID STACY Last Admin: 06/18/19 06:32 Dose: 1,600 mg Non-Formulary Medication (Budesonide [Entocort Ec]) 9 mg PO DAILY STACY Pantoprazole Sodium (Protonix -) 40 mg PO DAILY STACY - Objective Vital Signs: Vital Signs Temperature 97.8 F 06/18/19 06:00 Pulse Rate 94 H 06/18/19 06:00 Respiratory Rate 18 06/18/19 06:00 Blood Pressure 112/64 06/18/19 06:00 O2 Sat by Pulse Oximetry (%) 93 L 06/18/19 06:00 Labs: CBC, BMP 06/18/19 07:27 06/18/19 07:27 INR, PTT INR 1.01 (0.83-1.09) 06/17/19 06:15
[2019-06-18] MEDS: INSULIN SLIDING SCALE (NOVOLOG) 1 VIAL SQ SCH ×2 (17:30→21:34)
[2019-06-18] MEDS: ATORVASTATIN CA 10 MG TABLET (FP) PO SCH (21:34)
[2019-06-19] MEDS ORDERED: PIPERACILLIN/TAZOBACTAM 3.375 GM VIAL IVPB ONE ×4 (00:02→23:46)
[2019-06-19] MEDS ORDERED: DEXTROSE 5%-WATER - 50 ML IVPB ONE ×4 (00:02→23:46)
[2019-06-19] MEDS: PIPERACILLIN/TAZOB 3.375 GM 3.375 GM in DEXTROSE 5%-WATER - 50 ML IVPB SCH ×3 (01:46→18:02)
[2019-06-19] MEDS: HEPARIN NA (PORCINE) 5,000 UNITS/ML 1ML VIAL SQ SCH ×3 (03:26→18:02)
[2019-06-19] MEDS: LOPERAMIDE HCL 2 MG CAPSULE PO PRN (03:52)
[2019-06-19] MEDS: INSULIN SLIDING SCALE (NOVOLOG) 1 VIAL SQ SCH ×4 (06:13→21:23)
[2019-06-19] MEDS: MESALAMINE 800 MG TABLET.DR PO SCH ×3 (07:00→21:22)
[2019-06-19] MEDS: SODIUM CHLORIDE 1,000 ML IV SCH (08:30)
--- NOTE | 2019-06-19 09:08 | PN ---
Physical Exam: SUBJECTIVE: Patient seen and examined,reports feeling weak and tried this AM, reports diarrhea overnight ( hx of Crohn's disease), intermittent productive cough with yellow sputum, denies sob, cp, palpitations, fever, chills. OBJECTIVE: Vital Signs Period Temp Pulse Resp BP Sys/Moe Pulse Ox Last 24 Hr 97.9 F-99.5 F 75-118 16-18 119-140/54-65 93-98 GENERAL: The patient is awake, alert, and fully oriented, in no acute distress. HEAD: Normal with no signs of trauma. EYES: PERRL, extraocular movements intact, sclera anicteric, conjunctiva clear. No ptosis. ENT: Ears normal, nares patent, oropharynx clear without exudates, moist mucous membranes. NECK: Trachea midline, full range of motion, supple. LUNGS: Bilaterl lower lobe with fine rales, no wheezing Breath sounds equal, no accessory muscle use. HEART: Regular rate and rhythm, S1, S2 without murmur, rub or gallop. ABDOMEN: Soft, nontender, nondistended, normoactive bowel sounds, no guarding, no rebound, no hepatosplenomegaly, no masses. EXTREMITIES: 2+ pulses, warm, well-perfused, no edema. NEUROLOGICAL: Cranial nerves II through XII grossly intact. Normal speech, gait not observed. PSYCH: Normal mood, normal affect. SKIN: Warm, dry, normal turgor, no rashes or lesions noted Laboratory Results - last 24 hr 06/18/19 06/18/19 06/18/19 09:15 11:53 16:09 POC Glucometer 317 110 Lactic Acid 1.4 06/18/19 06/19/19 21:11 06:02 POC Glucometer 283 134 Lactic Acid Active Medications Generic Name Dose Route Start Last Admin Trade Name Freq PRN Reason Stop Dose Admin Aspirin 81 mg 06/18/19 10:00 06/18/19 10:05 Asa - PO 81 mg DAILY STACY Administration Atorvastatin Calcium 20 mg 06/18/19 22:00 06/18/19 21:34 Lipitor - PO 20 mg HS STACY Administration Heparin Sodium (Porcine) 5,000 unit 06/17/19 18:00 06/19/19 03:26 Heparin - SQ 5,000 unit Q8H-IV STACY Administration Sodium Chloride 1,000 mls @ 75 mls/hr 06/17/19 08:00 06/18/19 08:20 Normal Saline - IV 75 mls/hr ASDIR STACY Administration Piperacillin Sod/Tazobactam 50 mls @ 100 mls/hr 06/17/19 13:15 06/19/19 01:46 Sod 3.375 gm/ Dextrose IVPB 100 mls/hr Q8H-IV STACY Administration Protocol Insulin Aspart 1 vial 06/18/19 16:30 06/19/19 06:13 Novolog Vial Sliding Scale - SQ Not Given ACHS STACY Protocol Lisinopril 20 mg 06/19/19 10:00 Prinivil PO DAILY STACY Loperamide HCl 2 mg 06/19/19 03:33 06/19/19 03:52 Imodium - PO 2 mg Q8H PRN Administration DIARRHEA Mesalamine 1,600 mg 06/18/19 06:00 06/19/19 07:00 Asacol Hd - PO 1,600 mg TID STACY Administration Non-Formulary Medication 9 mg 06/18/19 10:00 Budesonide [Entocort Ec] PO DAILY STACY Pantoprazole Sodium 40 mg 06/18/19 10:00 06/18/19 10:05 Protonix - PO 40 mg DAILY STACY Administration Microbiology 06/17/19 06:15 Blood - Peripheral Venous Blood Culture - Preliminary NO GROWTH OBTAINED AFTER 48 HOURS, INCUBATION TO CONTINUE FOR 3 DAYS. 06/17/19 06:15 Blood - Peripheral Venous Blood Culture - Preliminary NO GROWTH OBTAINED AFTER 48 HOURS, INCUBATION TO CONTINUE FOR 3 DAYS. 06/18/19 Unknown Urine - Urine Clean Catch Legionella Antigen - Final- Negative 06/18/19 Unknown Urine - Urine Clean Catch Streptococcus pneumoniae Antigen (M - Final-Negative 06/17/19 06:15 Urine - Urine Clean Catch Urine Culture - Final NO GROWTH OBTAINED * IMAGING CTA chest : No PE, Multifocal right upper, middle and lower lobe pneumonia CT abdomen/pelvis: reviewed, no acute pathology CxR: RML infiltrate ASSESSMENT/PLAN: 73 year-old male with a PMH significant for HTN, Type II IDDM, and Crohn's disease on PREDNISONE ,Admitted for severe sepsis likely secondary to community- acquired pneumonia. *Severe sepsis likely secondary to community acquired pneumonia- improved -MAx T102.7, p143, WBC 11.9k, RR 24, lactic acid 5.1 - Afebrile , wbc 11.9> 23.3 >18 -s/p fluid resuscitated 2.5L NS -s/p ceftriaxone and azithro in ED, switched to Zosyn -repeat lactic acid normalized - will f/u on labs - Influenza ruled out - BC preliminary neg - T.B mildly elevated - likely reactive due to sepsis, normalized now - sputum studies *Hypertension- low BP improved - will resume on home dose Lisinopril - will monitor BP closely *Type II IDDM- BS stable - FS Ac & HS -Novolog sliding scale coverage *Crohn's disease- stable,not in active flare -takes budesonide( corticosteroid equivalent) not on formulary; ask family to bring in -continue mesalamine * Hypocalemia -Ca 7.9 - corrected ca 9 - will replace Ca - will check Phos level , Mg replaced FEN - PO stephanie well, will hold off on IVF Electrolytes: replete as indicated Nutrition: diabetic diet Mg 1.7 - replaced, K 3.6 DVT prophylaxis: subq heparin Dispo: continues to require inpatient care. Full code. Visit type - Emergency Visit Emergency Visit: Yes ED Registration Date: 06/17/19 Care time: The patient presented to the Emergency Department on the above date and was hospitalized for further evaluation of their emergent condition. - New Patient This patient is new to me today: No - Critical Care Critical Care patient: No
[2019-06-19] MEDS: PANTOPRAZOLE 40 MG TABLET (FP) PO SCH (09:20)
[2019-06-19] MEDS: LISINOPRIL 20 MG TABLET (FP) PO SCH (09:20)
[2019-06-19 09:22] LABS: CALCIUM 7.9 mg/dl (8.5-10); CREATININE 1.4 mg/dl (0.55-1.3); MAGNESIUM 1.7 mg/dL (1.8-2.4); POTASSIUM 3.6 mmol/L (3.5-5.1)
[2019-06-19] MEDS: ASPIRIN 81 MG CHEWABLE TABLETS PO SCH (09:25)
[2019-06-19] MEDS ORDERED: MAGNESIUM SULF 50% (8.12 MEQ/2 ML-1 GM VIAL) IVPB ONE (13:17)
[2019-06-19] MEDS ORDERED: CALCIUM GLUCONATE 10% - 1,000 MG/10 ML VIAL IVPB ONE (13:26)
[2019-06-19] MEDS: ATORVASTATIN CA 10 MG TABLET (FP) PO SCH (21:22)
[2019-06-20] MEDS: PIPERACILLIN/TAZOB 3.375 GM 3.375 GM in DEXTROSE 5%-WATER - 50 ML IVPB SCH ×3 (02:08→17:09)
[2019-06-20] MEDS: HEPARIN NA (PORCINE) 5,000 UNITS/ML 1ML VIAL SQ SCH ×3 (02:09→17:08)
[2019-06-20] MEDS: INSULIN SLIDING SCALE (NOVOLOG) 1 VIAL SQ SCH ×4 (06:12→21:41)
[2019-06-20] MEDS: MESALAMINE 800 MG TABLET.DR PO SCH ×3 (06:12→21:20)
[2019-06-20 08:17] LABS: CALCIUM 8.6 mg/dl (8.5-10); CREATININE 1.4 mg/dl (0.55-1.3); MAGNESIUM 1.6 mg/dL (1.8-2.4); POTASSIUM 3.7 mmol/L (3.5-5.1)
[2019-06-20 08:21] LABS: HEMATOCRIT 33.8 % (35.4-49); HEMOGLOBIN 11.5 GM/dl (11.7-16.9); MCH 32.4 pg (25.7-33.7); MCHC 33.9 g/dl (32.0-35.9); MEAN CELL VOLUME 95.5 fl (80-96); MEAN PLT VOLUME 8.2 fl (7.5-11.1); PLATELET COUNT 316 K/MM3 (134-434); RBC 3.54 M/mm3 (4.00-5.60); RDW 12.5 % (11.9-15.9); WHITE BLOOD COUNT 12.6 K/mm3 (4.0-10.8)
[2019-06-20] MEDS ORDERED: PIPERACILLIN/TAZOBACTAM 3.375 GM VIAL IVPB ONE ×2 (09:22→17:00)
[2019-06-20] MEDS ORDERED: DEXTROSE 5%-WATER - 50 ML IVPB ONE ×2 (09:22→17:02)
[2019-06-20] MEDS: LISINOPRIL 20 MG TABLET (FP) PO SCH (09:32)
[2019-06-20] MEDS: ASPIRIN 81 MG CHEWABLE TABLETS PO SCH (09:32)
[2019-06-20] MEDS: PANTOPRAZOLE 40 MG TABLET (FP) PO SCH (09:32)
[2019-06-20] MEDS: BUDESONIDE PO SCH (09:33)
[2019-06-20 10:33] LABS: PLATELET ESTIMATE ADEQUATE
--- NOTE | 2019-06-20 11:33 | PN ---
Physical Exam: SUBJECTIVE: Patient seen and examined sitting on edge of bed. present. Feels much stronger. Began having diarrhea last night, several episodes. OBJECTIVE: Vital Signs Period Temp Pulse Resp BP Sys/Moe Pulse Ox Last 24 Hr 97.9 F-98.4 F 89-94 16-20 116-146/53-76 94-96 GENERAL: The patient is awake, alert, and fully oriented, in no acute distress. Much stronger, moving about room. LUNGS: Scattered rales HEART: Regular rate and rhythm, S1, S2 ABDOMEN: Soft, nontender, nondistended EXTREMITIES: 2+ pulses, warm, well-perfused, no edema. NEUROLOGICAL: Cranial nerves II through XII grossly intact. Normal speech, moves all extremities freely Laboratory Results - last 24 hr 06/19/19 06/19/19 06/19/19 06:00 11:32 16:17 WBC RBC Hgb Hct MCV MCH MCHC RDW Plt Count MPV Absolute Neuts (auto) Neutrophils % Neutrophils % (Manual) Band Neutrophils % Lymphocytes % Lymphocytes % (Manual) Monocytes % (Manual) Eosinophils % (Manual) Platelet Estimate Sodium Potassium Chloride Carbon Dioxide Anion Gap BUN Creatinine Est GFR (CKD-EPI)AfAm Est GFR (CKD-EPI)NonAf POC Glucometer 226 88 Random Glucose Calcium Phosphorus 2.9 Magnesium 06/19/19 06/20/19 06/20/19 21:05 06:08 07:10 WBC 12.6 H RBC 3.54 L Hgb 11.5 L Hct 33.8 L MCV 95.5 MCH 32.4 MCHC 33.9 RDW 12.5 Plt Count 316 MPV 8.2 Absolute Neuts (auto) 10.3 Neutrophils % No Result Required. Neutrophils % (Manual) 83.0 H Band Neutrophils % 1.0 Lymphocytes % No Result Required. Lymphocytes % (Manual) 12.0 D Monocytes % (Manual) 3 L Eosinophils % (Manual) 1.0 Platelet Estimate Adequate Sodium Potassium Chloride Carbon Dioxide Anion Gap BUN Creatinine Est GFR (CKD-EPI)AfAm Est GFR (CKD-EPI)NonAf POC Glucometer 340 139 Random Glucose Calcium Phosphorus Magnesium 06/20/19 07:10 WBC RBC Hgb Hct MCV MCH MCHC RDW Plt Count MPV Absolute Neuts (auto) Neutrophils % Neutrophils % (Manual) Band Neutrophils % Lymphocytes % Lymphocytes % (Manual) Monocytes % (Manual) Eosinophils % (Manual) Platelet Estimate Sodium 138 Potassium 3.7 Chloride 106 Carbon Dioxide 23 Anion Gap 9 BUN 11.0 Creatinine 1.4 H Est GFR (CKD-EPI)AfAm 57.76 Est GFR (CKD-EPI)NonAf 49.84 POC Glucometer Random Glucose 147 H Calcium 8.6 Phosphorus Magnesium 1.6 L Active Medications Generic Name Dose Route Start Last Admin Trade Name Freq PRN Reason Stop Dose Admin Aspirin 81 mg 06/18/19 10:00 06/20/19 09:32 Asa - PO 81 mg DAILY STACY Administration Atorvastatin Calcium 20 mg 06/18/19 22:00 06/19/19 21:22 Lipitor - PO 20 mg HS STACY Administration Heparin Sodium (Porcine) 5,000 unit 06/17/19 18:00 06/20/19 09:31 Heparin - SQ 5,000 unit Q8H-IV STACY Administration Piperacillin Sod/Tazobactam 50 mls @ 100 mls/hr 06/17/19 13:15 06/20/19 09:32 Sod 3.375 gm/ Dextrose IVPB 100 mls/hr Q8H-IV STACY Administration Protocol Insulin Aspart 1 vial 06/18/19 16:30 06/20/19 06:12 Novolog Vial Sliding Scale - SQ Not Given ACHS STACY Protocol Lisinopril 20 mg 06/19/19 10:00 06/20/19 09:32 Prinivil PO 20 mg DAILY STACY Administration Loperamide HCl 2 mg 06/19/19 03:33 06/19/19 03:52 Imodium - PO 2 mg Q8H PRN Administration DIARRHEA Mesalamine 1,600 mg 06/18/19 06:00 06/20/19 06:12 Asacol Hd - PO 1,600 mg TID STACY Administration Non-Formulary Medication 0 mg 06/18/19 10:00 06/20/19 09:33 Budesonide [Entocort Ec] PO 3 mg DAILY STACY Administration Pantoprazole Sodium 40 mg 06/18/19 10:00 06/20/19 09:32 Protonix - PO 40 mg DAILY STACY Administration ASSESSMENT/PLAN: 73 year-old male with a PMH significant for HTN, Type II IDDM, and Crohn's disease. Admitted for severe sepsis likely secondary to community-acquired pneumonia. Severe sepsis secondary to multi-lobar community acquired pneumonia --afebrile, WBC trending down --switch to Zosyn --duonebs Hypertension --hold anti-hypertensives due to sepsis Type II IDDM --Novolog sliding scale coverage Crohn's disease --episodes of diarrhea, but not typical of Crohn's flares as no blood and no cramping pain --send c. diff and stool culture --no immodium --continue budesonide, mesalamine FEN Fluids: PO intake adequate Electrolytes: replete as indicated Nutrition: diabetic diet DVT prophylaxis: subq heparin Dispo: continues to require inpatient care. Full code. Visit type - Emergency Visit Emergency Visit: Yes ED Registration Date: 06/17/19 Care time: The patient presented to the Emergency Department on the above date and was hospitalized for further evaluation of their emergent condition. - New Patient This patient is new to me today: No - Critical Care Critical Care patient: No
[2019-06-20] MEDS ORDERED: PT OWN MED DRAWER 7, Y5N ONE ×2 (14:35→21:08)
[2019-06-20] MEDS: ALBUTEROL SO4 2.5/IPRATROPIUM 0.5 INH SOL 3 ML VIAL.NEB. NEB SCH ×2 (14:36→21:20)
[2019-06-20] MEDS ORDERED: INSULIN (NOVOLOG) ASPART 100 UNITS/ML 10ML VIAL ONE (17:00)
[2019-06-20] MEDS: ATORVASTATIN CA 10 MG TABLET (FP) PO SCH (21:20)
[2019-06-21] MEDS: HEPARIN NA (PORCINE) 5,000 UNITS/ML 1ML VIAL SQ SCH ×3 (02:00→16:59)
[2019-06-21] MEDS: PIPERACILLIN/TAZOB 3.375 GM 3.375 GM in DEXTROSE 5%-WATER - 50 ML IVPB SCH ×3 (02:00→17:00)
[2019-06-21] MEDS ORDERED: PIPERACILLIN/TAZOBACTAM 3.375 GM VIAL IVPB ONE ×3 (03:17→16:39)
[2019-06-21] MEDS ORDERED: DEXTROSE 5%-WATER - 50 ML IVPB ONE ×3 (03:17→16:39)
[2019-06-21] MEDS: LOPERAMIDE HCL 2 MG CAPSULE PO PRN (03:51)
[2019-06-21] MEDS ORDERED: PT OWN MED DRAWER 7, Y5N ONE ×4 (05:31→20:58)
[2019-06-21] MEDS: MESALAMINE 800 MG TABLET.DR PO SCH ×3 (05:40→21:41)
[2019-06-21] MEDS: INSULIN SLIDING SCALE (NOVOLOG) 1 VIAL SQ SCH ×4 (06:54→21:42)
--- NOTE | 2019-06-21 09:19 | PN ---
Physical Exam: SUBJECTIVE: Patient seen and examined. Multiple episodes of diarrhea overnight. OBJECTIVE: Vital Signs Period Temp Pulse Resp BP Sys/Moe Pulse Ox Last 24 Hr 97.8 F-99.1 F 75-91 16-18 114-138/53-67 93-100 GENERAL: The patient is awake, alert, and fully oriented, in no acute distress. Much stronger, moving about room. LUNGS: CTA HEART: Regular rate and rhythm, S1, S2 ABDOMEN: Soft, nontender, nondistended EXTREMITIES: 2+ pulses, warm, well-perfused, no edema. NEUROLOGICAL: Cranial nerves II through XII grossly intact. Normal speech, moves all extremities freely Laboratory Results - last 24 hr 06/20/19 06/20/19 06/20/19 07:10 12:40 16:26 Neutrophils % (Manual) 83.0 H Band Neutrophils % 1.0 Lymphocytes % (Manual) 12.0 D Monocytes % (Manual) 3 L Eosinophils % (Manual) 1.0 Platelet Estimate Adequate POC Glucometer 427 357 Active Medications Generic Name Dose Route Start Last Admin Trade Name Yang PRN Reason Stop Dose Admin Albuterol/Ipratropium 1 amp 06/20/19 14:00 06/20/19 21:20 Duoneb - NEB 1 amp RTID STACY Administration Aspirin 81 mg 06/18/19 10:00 06/20/19 09:32 Asa - PO 81 mg DAILY STACY Administration Atorvastatin Calcium 20 mg 06/18/19 22:00 06/20/19 21:20 Lipitor - PO 20 mg HS STACY Administration Heparin Sodium (Porcine) 5,000 unit 06/17/19 18:00 06/21/19 02:00 Heparin - SQ 5,000 unit Q8H-IV STACY Administration Piperacillin Sod/Tazobactam 50 mls @ 100 mls/hr 06/17/19 13:15 06/21/19 02:00 Sod 3.375 gm/ Dextrose IVPB 100 mls/hr Q8H-IV STACY Administration Protocol Insulin Aspart 1 vial 06/18/19 16:30 06/21/19 06:54 Novolog Vial Sliding Scale - SQ Not Given ACHS STACY Protocol Lisinopril 20 mg 06/19/19 10:00 06/20/19 09:32 Prinivil PO 20 mg DAILY STACY Administration Mesalamine 1,600 mg 06/18/19 06:00 06/21/19 05:40 Asacol Hd - PO 1,600 mg TID STACY Administration Non-Formulary Medication 0 mg 06/18/19 10:00 06/20/19 09:33 Budesonide [Entocort Ec] PO 3 mg DAILY STACY Administration Pantoprazole Sodium 40 mg 06/18/19 10:00 06/20/19 09:32 Protonix - PO 40 mg DAILY STACY Administration ASSESSMENT/PLAN: 73 year-old male with a PMH significant for HTN, Type II IDDM, and Crohn's disease. Admitted for severe sepsis secondary to community-acquired pneumonia. Severe sepsis secondary to multi-lobar community acquired pneumonia --afebrile, WBC trending down --continue Zosyn --duonebs --ID following, will need 7 days of IV antibiotics Hypertension --resume home lisinopril Type II IDDM --Novolog sliding scale coverage Crohn's disease --episodes of diarrhea, but not typical of Crohn's flares as no blood and no cramping pain --c. diff negative; stool culture pending --no immodium --continue budesonide, mesalamine FEN Fluids: PO intake adequate Electrolytes: replete as indicated Nutrition: diabetic diet DVT prophylaxis: subq heparin Dispo: continues to require inpatient care. Full code. Visit type - Emergency Visit Emergency Visit: Yes ED Registration Date: 06/17/19 Care time: The patient presented to the Emergency Department on the above date and was hospitalized for further evaluation of their emergent condition. - New Patient This patient is new to me today: No - Critical Care Critical Care patient: No
[2019-06-21] MEDS ORDERED: MAGNESIUM SULF 50% (8.12 MEQ/2 ML-1 GM VIAL) IVPB ONE (09:34)
[2019-06-21] MEDS: ASPIRIN 81 MG CHEWABLE TABLETS PO SCH (09:36)
[2019-06-21] MEDS: LISINOPRIL 20 MG TABLET (FP) PO SCH (09:37)
[2019-06-21] MEDS: PANTOPRAZOLE 40 MG TABLET (FP) PO SCH (09:37)
[2019-06-21] MEDS: ALBUTEROL SO4 2.5/IPRATROPIUM 0.5 INH SOL 3 ML VIAL.NEB. NEB SCH ×3 (09:38→21:41)
[2019-06-21] MEDS ORDERED: MAGNESIUM SULFATE IN WATER 2 GM/50 ML IVPB IVPB ONE (09:45)
[2019-06-21] MEDS: BUDESONIDE PO SCH (14:17)
[2019-06-21] MEDS ORDERED: INSULIN (LEVEMIR) 100 UNITS/ML UNITS SQ ONE (16:36)
[2019-06-21] MEDS ORDERED: Insulin (LOG) Aspart 100 UNITS/ML VIAL SQ STA (16:39)
[2019-06-21] MEDS ORDERED: INSULIN (NOVOLOG) ASPART 100 UNITS/ML 10ML VIAL ONE (16:39)
[2019-06-21] MEDS: LACTOBACILLUS ACIDOPHILUS 1 TABLET PO SCH (17:01)
[2019-06-21] MEDS: ATORVASTATIN CA 10 MG TABLET (FP) PO SCH (21:41)
[2019-06-21] MEDS ORDERED: INSULIN (LEVEMIR) 100 UNITS/ML UNITS SQ SCH (22:00)
[2019-06-22] MEDS: PIPERACILLIN/TAZOB 3.375 GM 3.375 GM in DEXTROSE 5%-WATER - 50 ML IVPB SCH ×3 (02:00→17:51)
[2019-06-22] MEDS: HEPARIN NA (PORCINE) 5,000 UNITS/ML 1ML VIAL SQ SCH ×3 (02:24→17:51)
[2019-06-22] MEDS ORDERED: DEXTROSE 5%-WATER - 50 ML IVPB ONE ×4 (03:15→22:37)
[2019-06-22] MEDS ORDERED: PIPERACILLIN/TAZOBACTAM 3.375 GM VIAL IVPB ONE ×4 (03:15→22:37)
[2019-06-22] MEDS: MESALAMINE 800 MG TABLET.DR PO SCH ×3 (05:33→21:02)
[2019-06-22] MEDS: INSULIN SLIDING SCALE (NOVOLOG) 1 VIAL SQ SCH ×4 (06:26→21:03)
[2019-06-22 08:13] LABS: BASO % 0.2 % (0-2.0); EOS % 3.4 % (0-4.5); HEMATOCRIT 35.6 % (35.4-49); HEMOGLOBIN 12.1 GM/dl (11.7-16.9); LYMPH % 19.4 % (8-40); MCH 32.4 pg (25.7-33.7); MEAN CELL VOLUME 95.5 fl (80-96); MEAN PLT VOLUME 7.9 fl (7.5-11.1); MONO % 9.7 % (3.8-10.2); NEUT % 67.3 % (42.8-82.8); PLATELET COUNT 423 K/MM3 (134-434); RBC 3.73 M/mm3 (4.00-5.60); RDW 12.4 % (11.9-15.9); WHITE BLOOD COUNT 10.1 K/mm3 (4.0-10.8)
[2019-06-22 08:17] LABS: ALBUMIN 2.9 g/dl (3.4-5.0); BILIRUBIN,TOTAL 0.5 mg/dl (0.2-1); CALCIUM 8.8 mg/dl (8.5-10); CREATININE 1.3 mg/dl (0.55-1.3); MAGNESIUM 1.7 mg/dL (1.8-2.4); POTASSIUM 3.4 mmol/L (3.5-5.1); TOT PROT 5.7 g/dl (6.4-8.2)
[2019-06-22] MEDS: ALBUTEROL SO4 2.5/IPRATROPIUM 0.5 INH SOL 3 ML VIAL.NEB. NEB SCH ×3 (08:18→21:02)
[2019-06-22] MEDS: LACTOBACILLUS ACIDOPHILUS 1 TABLET PO SCH (09:58)
[2019-06-22] MEDS: LISINOPRIL 20 MG TABLET (FP) PO SCH (09:59)
[2019-06-22] MEDS: CHLORTHALIDONE 25 MG TABLET PO SCH ×2 (09:59→10:05)
[2019-06-22] MEDS: ASPIRIN 81 MG CHEWABLE TABLETS PO SCH (09:59)
[2019-06-22] MEDS: amLODIPine BESYLATE 5 MG TABLET (FP) PO SCH (09:59)
[2019-06-22] MEDS: BUDESONIDE PO SCH (10:04)
--- NOTE | 2019-06-22 11:38 | PN ---
Physical Exam: SUBJECTIVE: Patient seen and examined. Feels better each day, diarrhea improved. OBJECTIVE: Vital Signs Period Temp Pulse Resp BP Sys/Moe Pulse Ox Last 24 Hr 97.7 F-98.6 F 84-104 17-19 117-158/55-74 90-98 GENERAL: The patient is awake, alert, and fully oriented, in no acute distress. LUNGS: CTA HEART: Regular rate and rhythm, S1, S2 ABDOMEN: Soft, nontender, nondistended EXTREMITIES: 2+ pulses, warm, well-perfused, no edema. NEUROLOGICAL: Cranial nerves II through XII grossly intact. Normal speech, moves all extremities freely Laboratory Results - last 24 hr 06/21/19 06/21/19 06/22/19 16:32 21:37 07:25 WBC 10.1 RBC 3.73 L Hgb 12.1 Hct 35.6 MCV 95.5 MCH 32.4 MCHC 34.0 RDW 12.4 Plt Count 423 D MPV 7.9 Absolute Neuts (auto) 6.8 Neutrophils % 67.3 D Lymphocytes % 19.4 D Monocytes % 9.7 D Eosinophils % 3.4 D Basophils % 0.2 D Sodium Potassium Chloride Carbon Dioxide Anion Gap BUN Creatinine Est GFR (CKD-EPI)AfAm Est GFR (CKD-EPI)NonAf POC Glucometer 460 233 Random Glucose Calcium Magnesium Total Bilirubin AST ALT Alkaline Phosphatase Total Protein Albumin 06/22/19 07:25 WBC RBC Hgb Hct MCV MCH MCHC RDW Plt Count MPV Absolute Neuts (auto) Neutrophils % Lymphocytes % Monocytes % Eosinophils % Basophils % Sodium 139 Potassium 3.4 L Chloride 104 Carbon Dioxide 25 Anion Gap 10 BUN 11.0 Creatinine 1.3 Est GFR (CKD-EPI)AfAm 63.18 Est GFR (CKD-EPI)NonAf 54.51 POC Glucometer Random Glucose 165 H Calcium 8.8 Magnesium 1.7 L Total Bilirubin 0.5 AST 36 ALT 33 Alkaline Phosphatase 44 L Total Protein 5.7 L Albumin 2.9 L Active Medications Generic Name Dose Route Start Last Admin Trade Name Freq PRN Reason Stop Dose Admin Albuterol/Ipratropium 1 amp 06/20/19 14:00 06/22/19 08:18 Duoneb - NEB 1 amp RTID [facility] Administration Amlodipine Besylate 5 mg 06/22/19 10:00 06/22/19 09:59 Norvasc - PO 5 mg DAILY [facility] Administration Aspirin 81 mg 06/18/19 10:00 06/22/19 09:59 Asa - PO 81 mg DAILY [facility] Administration Atorvastatin Calcium 20 mg 06/18/19 22:00 06/21/19 21:41 Lipitor - PO 20 mg HS [facility]Y Administration Chlorthalidone 25 mg 06/22/19 10:00 06/22/19 10:05 Hygroton - PO Not Given DAILY [facility]Y Heparin Sodium (Porcine) 5,000 unit 06/17/19 18:00 06/22/19 09:59 Heparin - SQ 5,000 unit Q8H-IV [facility] Administration Piperacillin Sod/Tazobactam 50 mls @ 100 mls/hr 06/17/19 13:15 06/22/19 09:58 Sod 3.375 gm/ Dextrose IVPB 100 mls/hr Q8H-IV [facility] Administration Protocol Insulin Aspart 1 vial 06/18/19 16:30 06/22/19 06:26 Novolog Vial Sliding Scale - SQ Not Given ACHS [facility] Protocol Insulin Detemir 16 units 06/22/19 22:00 Levemir Vial SQ BID@0700,2200 [facility] Lactobacillus Acidophilus 1 tab 06/21/19 16:45 06/22/19 09:58 Bacid - PO 1 tab DAILY [facility] Administration Lisinopril 20 mg 06/19/19 10:00 06/22/19 09:59 Prinivil PO 20 mg DAILY [facility] Administration Mesalamine 1,600 mg 06/18/19 06:00 06/22/19 05:33 Asacol Hd - PO 1,600 mg TID STACY Administration Non-Formulary Medication 0 mg 06/18/19 10:00 06/22/19 10:04 Budesonide [Entocort Ec] PO Not Given DAILY [facility] ASSESSMENT/PLAN 73 year-old male with a PMH significant for HTN, Type II IDDM, and Crohn's disease. Admitted for severe sepsis secondary to community-acquired pneumonia. Severe sepsis secondary to multi-lobar community acquired pneumonia --afebrile, mild leukocytosis --continue Zosyn --duonebs --ID following, will need 7 days of IV antibiotics Hypertension --resume home lisinopril Type II IDDM --Novolog sliding scale coverage Crohn's disease Diarrhea --episodes of diarrhea, but not typical of Crohn's flares as no blood and no cramping pain --c. diff negative; stool culture negative; diarrhea likely side effect of abx therapy, bacid was started on 06/21, will continue --continue budesonide, mesalamine FEN Fluids: PO intake adequate Electrolytes: replete as indicated Nutrition: diabetic diet DVT prophylaxis: subq heparin Dispo: continues to require inpatient care. Full code. Visit type - Emergency Visit Emergency Visit: Yes ED Registration Date: 06/17/19 Care time: The patient presented to the Emergency Department on the above date and was hospitalized for further evaluation of their emergent condition. - New Patient This patient is new to me today: No - Critical Care Critical Care patient: No
[2019-06-22] MEDS ORDERED: PT OWN MED DRAWER 7, Y5N ONE ×2 (14:12→20:43)
--- NOTE | 2019-06-22 20:55 | PN ---
Progress Note, Physician - Current Medication List Current Medications: Active Medications Albuterol/Ipratropium (Duoneb -) 1 amp NEB RTID [facility] Last Admin: 06/22/19 14:12 Dose: 1 amp Amlodipine Besylate (Norvasc -) 5 mg PO DAILY [facility] Last Admin: 06/22/19 09:59 Dose: 5 mg Aspirin (Asa -) 81 mg PO DAILY [facility] Last Admin: 06/22/19 09:59 Dose: 81 mg Atorvastatin Calcium (Lipitor -) 20 mg PO HS [facility] Last Admin: 06/21/19 21:41 Dose: 20 mg Chlorthalidone (Hygroton -) 25 mg PO DAILY [facility] Last Admin: 06/22/19 10:05 Dose: Not Given Heparin Sodium (Porcine) (Heparin -) 5,000 unit SQ Q8H-IV [facility] Last Admin: 06/22/19 17:51 Dose: 5,000 unit Piperacillin Sod/Tazobactam (Sod 3.375 gm/ Dextrose) 50 mls @ 100 mls/hr IVPB Q8H-IV [facility]; Protocol Last Admin: 06/22/19 17:51 Dose: 100 mls/hr Insulin Aspart (Novolog Vial Sliding Scale -) 1 vial SQ ACHS [facility]; Protocol Last Admin: 06/22/19 16:45 Dose: 8 units Insulin Detemir (Levemir Vial) 16 units SQ BID@0700,2200 [facility] Lactobacillus Acidophilus (Bacid -) 1 tab PO DAILY [facility] Last Admin: 06/22/19 09:58 Dose: 1 tab Lisinopril (Prinivil) 20 mg PO DAILY [facility] Last Admin: 06/22/19 09:59 Dose: 20 mg Mesalamine (Asacol Hd -) 1,600 mg PO TID [facility] Last Admin: 06/22/19 14:12 Dose: 1,600 mg Non-Formulary Medication (Budesonide [Entocort Ec]) 0 mg PO DAILY [facility] Last Admin: 06/22/19 10:04 Dose: Not Given - Objective Vital Signs: Vital Signs Temperature 98.1 F 06/22/19 18:00 Pulse Rate 94 H 06/22/19 18:00 Respiratory Rate 18 06/22/19 18:00 Blood Pressure 145/66 06/22/19 18:00 O2 Sat by Pulse Oximetry (%) 95 06/22/19 18:00 Labs: CBC, BMP 06/22/19 07:25 06/22/19 07:25 INR, PTT INR 1.01 (0.83-1.09) 06/17/19 06:15
[2019-06-22] MEDS: ATORVASTATIN CA 10 MG TABLET (FP) PO SCH (21:02)
[2019-06-22] MEDS: INSULIN (LEVEMIR) 100 UNITS/ML UNITS SQ SCH (21:02)
--- NOTE | 2019-06-22 21:19 | PN ---
Progress Note, Physician History of Present Illness: stable no new issues - Current Medication List Current Medications: Active Medications Albuterol/Ipratropium (Duoneb -) 1 amp NEB RTID [facility] Last Admin: 06/22/19 21:02 Dose: 1 amp Amlodipine Besylate (Norvasc -) 5 mg PO DAILY [facility] Last Admin: 06/22/19 09:59 Dose: 5 mg Aspirin (Asa -) 81 mg PO DAILY [facility] Last Admin: 06/22/19 09:59 Dose: 81 mg Atorvastatin Calcium (Lipitor -) 20 mg PO HS [facility] Last Admin: 06/22/19 21:02 Dose: 20 mg Chlorthalidone (Hygroton -) 25 mg PO DAILY [facility] Last Admin: 06/22/19 10:05 Dose: Not Given Heparin Sodium (Porcine) (Heparin -) 5,000 unit SQ Q8H-IV [facility] Last Admin: 06/22/19 17:51 Dose: 5,000 unit Piperacillin Sod/Tazobactam (Sod 3.375 gm/ Dextrose) 50 mls @ 100 mls/hr IVPB Q8H-IV [facility]; Protocol Last Admin: 06/22/19 17:51 Dose: 100 mls/hr Insulin Aspart (Novolog Vial Sliding Scale -) 1 vial SQ ACHS [facility]; Protocol Last Admin: 06/22/19 21:03 Dose: 2 units Insulin Detemir (Levemir Vial) 16 units SQ BID@0700,2200 [facility] Last Admin: 06/22/19 21:02 Dose: 16 units Lactobacillus Acidophilus (Bacid -) 1 tab PO DAILY [facility] Last Admin: 06/22/19 09:58 Dose: 1 tab Lisinopril (Prinivil) 20 mg PO DAILY [facility] Last Admin: 06/22/19 09:59 Dose: 20 mg Mesalamine (Asacol Hd -) 1,600 mg PO TID [facility] Last Admin: 06/22/19 21:02 Dose: 1,600 mg Non-Formulary Medication (Budesonide [Entocort Ec]) 0 mg PO DAILY [facility] Last Admin: 06/22/19 10:04 Dose: Not Given - Objective Vital Signs: Vital Signs Temperature 98.1 F 06/22/19 18:00 Pulse Rate 94 H 06/22/19 18:00 Respiratory Rate 18 06/22/19 18:00 Blood Pressure 145/66 06/22/19 18:00 O2 Sat by Pulse Oximetry (%) 95 06/22/19 18:00 Constitutional: Yes: No Distress, Calm Cardiovascular: Yes: Regular Rate and Rhythm Respiratory: Yes: Regular, On Nasal O2, Poor Air Entry Gastrointestinal: Yes: Normal Bowel Sounds, Soft Musculoskeletal: Yes: WNL Extremities: Yes: WNL Neurological: Yes: Alert, Oriented Psychiatric: Yes: Alert, Oriented Labs: CBC, BMP 06/22/19 07:25 06/22/19 07:25 INR, PTT INR 1.01 (0.83-1.09) 06/17/19 06:15 Assessment/Plan patient with multiple medical problems immunocompromised and on predinsone, coming to the hospital with acute onset of sob and fever found to ahve an infiltrate on the lung and lactic acidosis probably leaning towars pneumonia also having gerd plan continue abx resp support incentive zoe rest as per the team
--- NOTE | 2019-06-22 21:20 | PN ---
Progress Note, Physician History of Present Illness: stable doing well had dirrhoea - Current Medication List Current Medications: Active Medications Albuterol/Ipratropium (Duoneb -) 1 amp NEB RTID [facility] BEDS [facility] Last Admin: 06/22/19 21:02 Dose: 1 amp Amlodipine Besylate (Norvasc -) 5 mg PO DAILY [facility] 234 BEDS AT [facility] Last Admin: 06/22/19 09:59 Dose: 5 mg Aspirin (Asa -) 81 mg PO DAILY [facility] 234 BEDS AT [facility] Last Admin: 06/22/19 09:59 Dose: 81 mg Atorvastatin Calcium (Lipitor -) 20 mg PO HS [facility] 234 BEDS AT [facility] Last Admin: 06/22/19 21:02 Dose: 20 mg Chlorthalidone (Hygroton -) 25 mg PO DAILY [facility] 234 BEDS AT [facility] Last Admin: 06/22/19 10:05 Dose: Not Given Heparin Sodium (Porcine) (Heparin -) 5,000 unit SQ Q8H-IV [facility] 234 B[facility]S AT [facility] Last Admin: 06/22/19 17:51 Dose: 5,000 unit Piperacillin Sod/Tazobactam (Sod 3.375 gm/ Dextrose) 50 mls @ 100 mls/hr IVPB Q8H-IV [facility] 234 BEDS [facility]; Protocol Last Admin: 06/22/19 17:51 Dose: 100 mls/hr Insulin Aspart (Novolog Vial Sliding Scale -) 1 vial SQ ACHS [facility] 234 BEDS AT [facility]; Protocol Last Admin: 06/22/19 21:03 Dose: 2 units Insulin Detemir (Levemir Vial) 16 units SQ BID@0700,2200 [facility] 234 BEDS [facility] Last Admin: 06/22/19 21:02 Dose: 16 units Lactobacillus Acidophilus (Bacid -) 1 tab PO DAILY [facility] 234 BEDS AT [facility] Last Admin: 06/22/19 09:58 Dose: 1 tab Lisinopril (Prinivil) 20 mg PO DAILY [facility] 234 B[facility]S AT [facility] Last Admin: 06/22/19 09:59 Dose: 20 mg Mesalamine (Asacol Hd -) 1,600 mg PO TID [facility] 234 BEDS [facility] Last Admin: 06/22/19 21:02 Dose: 1,600 mg Non-Formulary Medication (Budesonide [Entocort Ec]) 0 mg PO DAILY [facility] 234 B[facility]S [facility] Last Admin: 06/22/19 10:04 Dose: Not Given - Objective Vital Signs: Vital Signs Temperature 98.1 F 06/22/19 18:00 Pulse Rate 94 H 06/22/19 18:00 Respiratory Rate 18 06/22/19 18:00 Blood Pressure 145/66 0925/19 18:00 O2 Sat by Pulse Oximetry (%) 95 06/22/19 18:00 Constitutional: Yes: No Distress, Calm Cardiovascular: Yes: Regular Rate and Rhythm Respiratory: Yes: Regular, On Nasal O2, Poor Air Entry Gastrointestinal: Yes: Normal Bowel Sounds, Soft Musculoskeletal: Yes: WNL Extremities: Yes: WNL Neurological: Yes: Alert, Oriented Labs: CBC, BMP 06/22/19 07:25 06/22/19 07:25 INR, PTT INR 1.01 (0.83-1.09) 06/17/19 06:15 Assessment/Plan lactic acidosis pna fever dirrhoea dehydration plan continue abx resp support incentive zoe rest as per the team
--- NOTE | 2019-06-22 21:22 | PN ---
Progress Note, Physician History of Present Illness: improving cdiff negative - Current Medication List Current Medications: Active Medications Albuterol/Ipratropium (Duoneb -) 1 amp NEB RTID [facility] Last Admin: 06/22/19 21:02 Dose: 1 amp Amlodipine Besylate (Norvasc -) 5 mg PO DAILY [facility] Last Admin: 06/22/19 09:59 Dose: 5 mg Aspirin (Asa -) 81 mg PO DAILY [facility] Last Admin: 06/22/19 09:59 Dose: 81 mg Atorvastatin Calcium (Lipitor -) 20 mg PO HS [facility] Last Admin: 06/22/19 21:02 Dose: 20 mg Chlorthalidone (Hygroton -) 25 mg PO DAILY [facility] Last Admin: 06/22/19 10:05 Dose: Not Given Heparin Sodium (Porcine) (Heparin -) 5,000 unit SQ Q8H-IV [facility] Last Admin: 06/22/19 17:51 Dose: 5,000 unit Piperacillin Sod/Tazobactam (Sod 3.375 gm/ Dextrose) 50 mls @ 100 mls/hr IVPB Q8H-IV [facility]; Protocol Last Admin: 06/22/19 17:51 Dose: 100 mls/hr Insulin Aspart (Novolog Vial Sliding Scale -) 1 vial SQ ACHS [facility]; Protocol Last Admin: 06/22/19 21:03 Dose: 2 units Insulin Detemir (Levemir Vial) 16 units SQ BID@0700,2200 [facility] Last Admin: 06/22/19 21:02 Dose: 16 units Lactobacillus Acidophilus (Bacid -) 1 tab PO DAILY [facility] Last Admin: 06/22/19 09:58 Dose: 1 tab Lisinopril (Prinivil) 20 mg PO DAILY [facility] Last Admin: 06/22/19 09:59 Dose: 20 mg Mesalamine (Asacol Hd -) 1,600 mg PO TID [facility] Last Admin: 06/22/19 21:02 Dose: 1,600 mg Non-Formulary Medication (Budesonide [Entocort Ec]) 0 mg PO DAILY [facility] Last Admin: 06/22/19 10:04 Dose: Not Given - Objective Vital Signs: Vital Signs Temperature 98.1 F 06/22/19 18:00 Pulse Rate 94 H 06/22/19 18:00 Respiratory Rate 18 06/22/19 18:00 Blood Pressure 145/66 06/22/19 18:00 O2 Sat by Pulse Oximetry (%) 95 06/22/19 18:00 Constitutional: Yes: No Distress, Calm Cardiovascular: Yes: Regular Rate and Rhythm Respiratory: Yes: Regular, On Nasal O2 Gastrointestinal: Yes: Normal Bowel Sounds, Soft Musculoskeletal: Yes: WNL Extremities: Yes: WNL Neurological: Yes: Alert, Oriented Psychiatric: Yes: Alert, Oriented Labs: CBC, BMP 06/22/19 07:25 06/22/19 07:25 INR, PTT INR 1.01 (0.83-1.09) 06/17/19 06:15 Assessment/Plan lactic acidosis pna fever dirrhoea dehydration plan continue abx resp support incentive zoe rest as per the team
[2019-06-23] MEDS: PIPERACILLIN/TAZOB 3.375 GM 3.375 GM in DEXTROSE 5%-WATER - 50 ML IVPB SCH ×3 (02:20→17:45)
[2019-06-23] MEDS ORDERED: DEXTROSE 5%-WATER - 50 ML IVPB ONE ×3 (03:10→17:40)
[2019-06-23] MEDS ORDERED: PIPERACILLIN/TAZOBACTAM 3.375 GM VIAL IVPB ONE ×3 (03:10→17:40)
[2019-06-23] MEDS: HEPARIN NA (PORCINE) 5,000 UNITS/ML 1ML VIAL SQ SCH ×3 (03:20→17:46)
[2019-06-23] MEDS: MESALAMINE 800 MG TABLET.DR PO SCH ×3 (06:28→21:23)
[2019-06-23] MEDS: INSULIN SLIDING SCALE (NOVOLOG) 1 VIAL SQ SCH ×4 (06:52→22:48)
[2019-06-23] MEDS: INSULIN (LEVEMIR) 100 UNITS/ML UNITS SQ SCH ×2 (06:52→22:48)
[2019-06-23 07:53] LABS: BASO % 0.2 % (0-2.0); EOS % 3.3 % (0-4.5); HEMATOCRIT 35.6 % (35.4-49); HEMOGLOBIN 12.1 GM/dl (11.7-16.9); LYMPH % 19.4 % (8-40); MCH 32.3 pg (25.7-33.7); MCHC 34.1 g/dl (32.0-35.9); MEAN CELL VOLUME 94.8 fl (80-96); MEAN PLT VOLUME 7.7 fl (7.5-11.1); MONO % 7.4 % (3.8-10.2); NEUT % 69.7 % (42.8-82.8); PLATELET COUNT 433 K/MM3 (134-434); RBC 3.76 M/mm3 (4.00-5.60); RDW 12.5 % (11.9-15.9); WHITE BLOOD COUNT 12.6 K/mm3 (4.0-10.8)
[2019-06-23 08:07] LABS: ALBUMIN 2.8 g/dl (3.4-5.0); BILIRUBIN,TOTAL 0.5 mg/dl (0.2-1); CALCIUM 8.6 mg/dl (8.5-10); CREATININE 1.3 mg/dl (0.55-1.3); MAGNESIUM 1.5 mg/dL (1.8-2.4); POTASSIUM 3.4 mmol/L (3.5-5.1); TOT PROT 5.7 g/dl (6.4-8.2)
[2019-06-23] MEDS: ALBUTEROL SO4 2.5/IPRATROPIUM 0.5 INH SOL 3 ML VIAL.NEB. NEB SCH ×3 (08:30→21:26)
[2019-06-23] MEDS ORDERED: MAGNESIUM SULF 50% (8.12 MEQ/2 ML-1 GM VIAL) IVPB ONE (08:32)
[2019-06-23] MEDS ORDERED: MAGNESIUM SULFATE IN WATER 2 GM/50 ML IVPB IVPB ONE (09:00)
[2019-06-23] MEDS: LISINOPRIL 20 MG TABLET (FP) PO SCH (09:12)
[2019-06-23] MEDS: CHLORTHALIDONE 25 MG TABLET PO SCH (09:12)
[2019-06-23] MEDS: ASPIRIN 81 MG CHEWABLE TABLETS PO SCH (09:13)
[2019-06-23] MEDS: LACTOBACILLUS ACIDOPHILUS 1 TABLET PO SCH (09:13)
[2019-06-23] MEDS: amLODIPine BESYLATE 5 MG TABLET (FP) PO SCH (09:13)
[2019-06-23] MEDS: POTASSIUM CHLORIDE TABS 20 MEQ TABLET.ER (FP) PO SCH ×2 (09:13→17:00)
[2019-06-23] MEDS: BUDESONIDE PO SCH (09:14)
--- NOTE | 2019-06-23 11:15 | PN ---
Physical Exam: SUBJECTIVE: Patient seen and examined at bedside. Feels well, feels ready to go home tomorrow. OBJECTIVE: Vital Signs Period Temp Pulse Resp BP Sys/Moe Pulse Ox Last 24 Hr 97.9 F-99.3 F 76-97 18-18 129-150/64-72 93-97 GENERAL: The patient is awake, alert, and fully oriented, in no acute distress. LUNGS: CTA HEART: Regular rate and rhythm, S1, S2 ABDOMEN: Soft, nontender, nondistended EXTREMITIES: 2+ pulses, warm, well-perfused, no edema. NEUROLOGICAL: Cranial nerves II through XII grossly intact. Normal speech, moves all extremities freely Laboratory Results - last 24 hr 06/22/19 06/22/19 06/22/19 11:40 16:32 20:40 WBC RBC Hgb Hct MCV MCH MCHC RDW Plt Count MPV Absolute Neuts (auto) Neutrophils % Lymphocytes % Monocytes % Eosinophils % Basophils % Sodium Potassium Chloride Carbon Dioxide Anion Gap BUN Creatinine Est GFR (CKD-EPI)AfAm Est GFR (CKD-EPI)NonAf POC Glucometer 433 330 192 Random Glucose Calcium Magnesium Total Bilirubin AST ALT Alkaline Phosphatase Total Protein Albumin 06/23/19 06/23/19 06/23/19 06:46 07:30 07:30 WBC 12.6 H RBC 3.76 L Hgb 12.1 Hct 35.6 MCV 94.8 MCH 32.3 MCHC 34.1 RDW 12.5 Plt Count 433 MPV 7.7 Absolute Neuts (auto) 8.9 Neutrophils % 69.7 Lymphocytes % 19.4 Monocytes % 7.4 Eosinophils % 3.3 Basophils % 0.2 Sodium 140 Potassium 3.4 L Chloride 106 Carbon Dioxide 25 Anion Gap 9 BUN 12.0 Creatinine 1.3 Est GFR (CKD-EPI)AfAm 63.18 Est GFR (CKD-EPI)NonAf 54.51 POC Glucometer 118 Random Glucose 103 Calcium 8.6 Magnesium 1.5 L Total Bilirubin 0.5 AST 33 ALT 39 Alkaline Phosphatase 44 L Total Protein 5.7 L Albumin 2.8 L Active Medications Generic Name Dose Route Start Last Admin Trade Name Freq PRN Reason Stop Dose Admin Albuterol/Ipratropium 1 amp 06/20/19 14:00 06/23/19 08:30 Duoneb - NEB 1 amp RTID [facility] Administration Amlodipine Besylate 5 mg 06/22/19 10:00 06/23/19 09:13 Norvasc - PO 5 mg DAILY [facility] Administration Aspirin 81 mg 06/18/19 10:00 06/23/19 09:13 Asa - PO 81 mg DAILY [facility] Administration Atorvastatin Calcium 20 mg 06/18/19 22:00 06/22/19 21:02 Lipitor - PO 20 mg HS [facility] Administration Chlorthalidone 25 mg 06/22/19 10:00 06/23/19 09:12 Hygroton - PO 25 mg DAILY [facility] Administration Heparin Sodium (Porcine) 5,000 unit 06/17/19 18:00 06/23/19 09:13 Heparin - SQ 5,000 unit Q8H-IV [facility] Administration Piperacillin Sod/Tazobactam 50 mls @ 100 mls/hr 06/17/19 13:15 06/23/19 09:12 Sod 3.375 gm/ Dextrose IVPB 100 mls/hr Q8H-IV [facility] Administration Protocol Insulin Aspart 1 vial 06/18/19 16:30 06/23/19 06:52 Novolog Vial Sliding Scale - SQ Not Given ACHS [facility] Protocol Insulin Detemir 16 units 06/22/19 22:00 06/23/19 06:52 Levemir Vial SQ 16 units BID@0700,2200 [facility] Administration Lactobacillus Acidophilus 1 tab 06/21/19 16:45 06/23/19 09:13 Bacid - PO 1 tab DAILY [facility] Administration Lisinopril 20 mg 06/19/19 10:00 06/23/19 09:12 Prinivil PO 20 mg DAILY [facility] Administration Mesalamine 1,600 mg 06/18/19 06:00 06/23/19 06:28 Asacol Hd - PO 1,600 mg TID [facility] Administration Non-Formulary Medication 0 mg 06/18/19 10:00 06/23/19 09:14 Budesonide [Entocort Ec] PO Not Given DAILY [facility] Potassium Chloride 40 meq 06/23/19 10:00 06/23/19 09:13 K-Dur - PO 06/23/19 16:01 40 meq Q6H [facility] Administration ASSESSMENT/PLAN: 73 year-old male with a PMH significant for HTN, Type II IDDM, and Crohn's disease. Admitted for severe sepsis secondary to community-acquired pneumonia. Severe sepsis secondary to multi-lobar community acquired pneumonia --afebrile, mild leukocytosis --continue Zosyn (day #6) --duonebs --ID following, will need 7 days of IV antibiotics Hypertension --continue lisinopril Type II IDDM --Novolog sliding scale coverage Crohn's disease Diarrhea --episodes of diarrhea, but not typical of Crohn's flares as no blood and no cramping pain --c. diff negative; stool culture negative; diarrhea likely side effect of abx therapy, bacid was started on 06/21, will continue --continue budesonide, mesalamine Hypokalemia Hypomagnesemia --replete FEN Fluids: PO intake adequate Electrolytes: replete as indicated Nutrition: diabetic diet DVT prophylaxis: subq heparin Dispo: continues to require inpatient care. Full code. Visit type - Emergency Visit Emergency Visit: Yes ED Registration Date: 06/17/19 Care time: The patient presented to the Emergency Department on the above date and was hospitalized for further evaluation of their emergent condition. - New Patient This patient is new to me today: No - Critical Care Critical Care patient: No
[2019-06-23] MEDS ORDERED: PT OWN MED DRAWER 7, Y5N ONE ×2 (14:19→21:07)
--- NOTE | 2019-06-23 15:40 | PN ---
Progress Note, Physician - Current Medication List Current Medications: Active Medications Albuterol/Ipratropium (Duoneb -) 1 amp NEB RTID [facility] Last Admin: 06/23/19 14:55 Dose: 1 amp Amlodipine Besylate (Norvasc -) 5 mg PO DAILY [facility] Last Admin: 06/23/19 09:13 Dose: 5 mg Aspirin (Asa -) 81 mg PO DAILY [facility] Last Admin: 06/23/19 09:13 Dose: 81 mg Atorvastatin Calcium (Lipitor -) 20 mg PO HS [facility] Last Admin: 06/22/19 21:02 Dose: 20 mg Chlorthalidone (Hygroton -) 25 mg PO DAILY [facility] Last Admin: 06/23/19 09:12 Dose: 25 mg Heparin Sodium (Porcine) (Heparin -) 5,000 unit SQ Q8H-IV [facility] Last Admin: 06/23/19 09:13 Dose: 5,000 unit Piperacillin Sod/Tazobactam (Sod 3.375 gm/ Dextrose) 50 mls @ 100 mls/hr IVPB Q8H-IV [facility]; Protocol Last Admin: 06/23/19 09:12 Dose: 100 mls/hr Insulin Aspart (Novolog Vial Sliding Scale -) 1 vial SQ ACHS [facility]; Protocol Last Admin: 06/23/19 11:54 Dose: 4 units Insulin Detemir (Levemir Vial) 16 units SQ BID@0700,2200 [facility] Last Admin: 06/23/19 06:52 Dose: 16 units Lactobacillus Acidophilus (Bacid -) 1 tab PO DAILY [facility] Last Admin: 06/23/19 09:13 Dose: 1 tab Lisinopril (Prinivil) 20 mg PO DAILY [facility] Last Admin: 06/23/19 09:12 Dose: 20 mg Mesalamine (Asacol Hd -) 1,600 mg PO TID [facility] Last Admin: 06/23/19 14:24 Dose: 1,600 mg Non-Formulary Medication (Budesonide [Entocort Ec]) 0 mg PO DAILY [facility] Last Admin: 06/23/19 09:14 Dose: Not Given Potassium Chloride (K-Dur -) 40 meq PO Q6H [facility] Stop: 06/23/19 16:01 Last Admin: 06/23/19 09:13 Dose: 40 meq - Objective Vital Signs: Vital Signs Temperature 98.6 F 06/23/19 14:39 Pulse Rate 93 H 06/23/19 14:39 Respiratory Rate 06/23/19 14:39 Blood Pressure 139/64 06/23/19 14:39 O2 Sat by Pulse Oximetry (%) 96 06/23/19 14:39 Labs: CBC, BMP 06/23/19 07:30 06/23/19 07:30 INR, PTT INR 1.01 (0.83-1.09) 06/17/19 06:15 Assessment/Plan Lactic acidosis PNA Fever - resolved Diarrhea -- pt still with unformed BMs, stool cultures/Cdiff negative, suggest add immodium prn -- wbc mildly elevated today, repeat cbc tomorrow -- continue antibiotics for now -- appears to be clinically improving -- incentive zoe -- continue monitor
[2019-06-23] MEDS: ATORVASTATIN CA 10 MG TABLET (FP) PO SCH (21:25)
[2019-06-24] MEDS: HEPARIN NA (PORCINE) 5,000 UNITS/ML 1ML VIAL SQ SCH ×2 (02:00→09:40)
[2019-06-24] MEDS: PIPERACILLIN/TAZOB 3.375 GM 3.375 GM in DEXTROSE 5%-WATER - 50 ML IVPB SCH ×2 (02:00→09:40)
[2019-06-24] MEDS ORDERED: DEXTROSE 5%-WATER - 50 ML IVPB ONE ×2 (03:04→09:35)
[2019-06-24] MEDS ORDERED: PIPERACILLIN/TAZOBACTAM 3.375 GM VIAL IVPB ONE ×2 (03:04→09:35)
[2019-06-24] MEDS: MESALAMINE 800 MG TABLET.DR PO SCH ×2 (05:47→14:25)
[2019-06-24] MEDS: INSULIN SLIDING SCALE (NOVOLOG) 1 VIAL SQ SCH ×3 (07:07→16:29)
[2019-06-24 07:31] LABS: BASO % 0.3 % (0-2.0); EOS % 3.1 % (0-4.5); HEMATOCRIT 38.2 % (35.4-49); HEMOGLOBIN 12.9 GM/dl (11.7-16.9); LYMPH % 23.2 % (8-40); MCH 32.1 pg (25.7-33.7); MCHC 33.8 g/dl (32.0-35.9); MEAN CELL VOLUME 94.9 fl (80-96); MEAN PLT VOLUME 7.4 fl (7.5-11.1); MONO % 7.6 % (3.8-10.2); NEUT % 65.8 % (42.8-82.8); PLATELET COUNT 474 K/MM3 (134-434); RBC 4.02 M/mm3 (4.00-5.60); RDW 12.8 % (11.9-15.9); WHITE BLOOD COUNT 11.8 K/mm3 (4.0-10.8)
[2019-06-24 07:41] LABS: CALCIUM 8.9 mg/dl (8.5-10); CREATININE 1.3 mg/dl (0.55-1.3); POTASSIUM 3.9 mmol/L (3.5-5.1)
[2019-06-24] MEDS: INSULIN (LEVEMIR) 100 UNITS/ML UNITS SQ SCH (08:25)
[2019-06-24] MEDS: ALBUTEROL SO4 2.5/IPRATROPIUM 0.5 INH SOL 3 ML VIAL.NEB. NEB SCH ×2 (08:25→14:25)
[2019-06-24] MEDS: CHLORTHALIDONE 25 MG TABLET PO SCH (09:40)
[2019-06-24] MEDS: LACTOBACILLUS ACIDOPHILUS 1 TABLET PO SCH (09:41)
[2019-06-24] MEDS: LISINOPRIL 20 MG TABLET (FP) PO SCH (09:41)
[2019-06-24] MEDS: amLODIPine BESYLATE 5 MG TABLET (FP) PO SCH (09:41)
[2019-06-24] MEDS: BUDESONIDE PO SCH (09:41)
[2019-06-24] MEDS: ASPIRIN 81 MG CHEWABLE TABLETS PO SCH (09:41)
--- NOTE | 2019-06-24 12:34 | DS ---
Physical Exam: SUBJECTIVE: Patient seen and examined OBJECTIVE: Vital Signs Period Temp Pulse Resp BP Sys/Moe Pulse Ox Last 24 Hr 97.9 F-98.6 F 75-102 18-19 115-154/64-73 95-100 PHYSICAL EXAM GENERAL: The patient is awake, alert, and fully oriented, in no acute distress. HEAD: Normal with no signs of trauma. EYES: PERRL, extraocular movements intact, sclera anicteric, conjunctiva clear. ENT: Ears normal, nares patent, oropharynx clear without exudates, moist mucous membranes. NECK: Trachea midline, full range of motion, supple. LUNGS: Breath sounds equal, clear to auscultation bilaterally, no wheezes, no crackles, no accessory muscle use. HEART: Regular rate and rhythm, S1, S2 without murmur, rub or gallop. ABDOMEN: Soft, nontender, nondistended, normoactive bowel sounds, no guarding, no rebound, no hepatosplenomegaly, no masses. EXTREMITIES: 2+ pulses, warm, well-perfused, no edema. NEUROLOGICAL: Cranial nerves II through XII grossly intact. Normal speech, gait not observed. PSYCH: Normal mood, normal affect. SKIN: Warm, dry, normal turgor, no rashes or lesions noted. LABS Laboratory Results - last 24 hr 06/23/19 06/24/19 06/24/19 16:43 06:51 07:15 WBC 11.8 H RBC 4.02 Hgb 12.9 Hct 38.2 MCV 94.9 MCH 32.1 MCHC 33.8 RDW 12.8 Plt Count 474 H MPV 7.4 L Absolute Neuts (auto) 7.8 Neutrophils % 65.8 Lymphocytes % 23.2 Monocytes % 7.6 Eosinophils % 3.1 Basophils % 0.3 Sodium Potassium Chloride Carbon Dioxide Anion Gap BUN Creatinine Est GFR (CKD-EPI)AfAm Est GFR (CKD-EPI)NonAf POC Glucometer 230 70 Random Glucose Calcium 06/24/19 06/24/19 07:15 11:31 WBC RBC Hgb Hct MCV MCH MCHC RDW Plt Count MPV Absolute Neuts (auto) Neutrophils % Lymphocytes % Monocytes % Eosinophils % Basophils % Sodium 138 Potassium 3.9 Chloride 104 Carbon Dioxide 27 Anion Gap 7 L BUN 11.0 Creatinine 1.3 Est GFR (CKD-EPI)AfAm 63.18 Est GFR (CKD-EPI)NonAf 54.51 POC Glucometer 225 Random Glucose 68 L Calcium 8.9 HOSPITAL COURSE: Date of Admission:06/17/19 Date of Discharge: 06/24/19 Minutes to complete discharge: 35 Discharge Summary Reason For Visit: RIGHT LOWER LOBE PNEUMONIA Current Active Problems Diabetes mellitus (Acute) RLL pneumonia (Acute) Condition: Stable - Instructions - Home Medications Comprehensive Discharge Medication List: Ambulatory Orders Aspirin [ASA -] 81 mg PO DAILY 07/31/12 Atorvastatin Ca [Lipitor] 20 mg PO HS 07/31/12 Insulin (Levemir) [Levemir Flexpen -] 13 units SQ BID 07/31/12 Lisinopril [Prinivil] 20 mg PO DAILY 07/31/12 Sitagliptin Phos/Metformin HCl [Janumet 50-1,000 mg Tablet] 1 each PO BID #0 Amlodipine Besylate 5 mg PO DAILY 06/17/19 Budesonide [Entocort EC] 9 mg PO DAILY 06/17/19 Chlorthalidone 25 mg PO DAILY 06/17/19 Insulin Lispro [Humalog] 4 unit SQ AM 06/17/19 Insulin Lispro [Humalog] 6 unit SQ BID 06/17/19 Mesalamine [Asacol Hd -] 1,600 mg PO TID 06/17/19 Omeprazole 40 mg PO DAILY 06/17/19 This patient is new to me today: No Emergency Visit: Yes ED Registration Date: 06/17/19 Care time: The patient presented to the Emergency Department on the above date and was hospitalized for further evaluation of their emergent condition. Critical Care patient: No - Discharge Referral Referred to [facility] No
[2019-06-24 14:21] VITALS: BP 142/72; PULSE 87; TEMP 98
--- NOTE | 2019-06-24 14:47 | PN ---
Progress Note, Physician History of Present Illness: patient stable no new issues - Current Medication List Current Medications: Active Medications Albuterol/Ipratropium (Duoneb -) 1 amp NEB RTID [facility] Last Admin: 06/24/19 14:25 Dose: 1 amp Amlodipine Besylate (Norvasc -) 5 mg PO DAILY [facility] Last Admin: 06/24/19 09:41 Dose: 5 mg Aspirin (Asa -) 81 mg PO DAILY [facility] Last Admin: 06/24/19 09:41 Dose: 81 mg Atorvastatin Calcium (Lipitor -) 20 mg PO HS [facility] Last Admin: 06/23/19 21:25 Dose: 20 mg Chlorthalidone (Hygroton -) 25 mg PO DAILY [facility] Last Admin: 06/24/19 09:40 Dose: 25 mg Heparin Sodium (Porcine) (Heparin -) 5,000 unit SQ Q8H-IV [facility] Last Admin: 06/24/19 09:40 Dose: 5,000 unit Piperacillin Sod/Tazobactam (Sod 3.375 gm/ Dextrose) 50 mls @ 100 mls/hr IVPB Q8H-IV [facility]; Protocol Last Admin: 06/24/19 09:40 Dose: 100 mls/hr Insulin Aspart (Novolog Vial Sliding Scale -) 1 vial SQ ACHS [facility]; Protocol Last Admin: 06/24/19 11:39 Dose: 4 units Insulin Detemir (Levemir Vial) 16 units SQ BID@0700,2200 [facility] Last Admin: 06/24/19 08:25 Dose: 16 units Lactobacillus Acidophilus (Bacid -) 1 tab PO DAILY [facility] Last Admin: 06/24/19 09:41 Dose: 1 tab Lisinopril (Prinivil) 20 mg PO DAILY [facility] Last Admin: 06/24/19 09:41 Dose: 20 mg Mesalamine (Asacol Hd -) 1,600 mg PO TID [facility] Last Admin: 06/24/19 14:25 Dose: 1,600 mg Non-Formulary Medication (Budesonide [Entocort Ec]) 0 mg PO DAILY [facility] Last Admin: 06/24/19 09:41 Dose: Not Given - Objective Vital Signs: Vital Signs Temperature 98.0 F 06/24/19 14:10 Pulse Rate 87 06/24/19 14:10 Respiratory Rate 06/24/19 14:10 Blood Pressure 142/72 06/24/19 14:10 O2 Sat by Pulse Oximetry (%) 94 L 06/24/19 14:10 Constitutional: Yes: No Distress, Calm Cardiovascular: Yes: S1, S2 Respiratory: Yes: Regular, CTA Bilaterally Gastrointestinal: Yes: Normal Bowel Sounds, Soft Musculoskeletal: Yes: WNL Extremities: Yes: WNL Neurological: Yes: Alert, Oriented Psychiatric: Yes: Alert, Oriented Labs: CBC, BMP 06/24/19 07:15 06/24/19 07:15 INR, PTT INR 1.01 (0.83-1.09) 06/17/19 06:15 Assessment/Plan lactic acidosis pna fever dirrhoea dehydration plan continue abx can change to augmentin for 4 more days
--- NOTE | 2019-06-24 15:20 | DS ---
Physical Exam: SUBJECTIVE: Patient seen and examined OBJECTIVE: Vital Signs Period Temp Pulse Resp BP Sys/Moe Pulse Ox Last 24 Hr 97.9 F-98.4 F 75-102 18-19 115-154/64-73 94-100 PHYSICAL EXAM GENERAL: The patient is awake, alert, and fully oriented, in no acute distress. HEAD: Normal with no signs of trauma. EYES: PERRL, extraocular movements intact, sclera anicteric, conjunctiva clear. ENT: Ears normal, nares patent, oropharynx clear without exudates, moist mucous membranes. NECK: Trachea midline, full range of motion, supple. LUNGS: Breath sounds equal, clear to auscultation bilaterally, no wheezes, no crackles, no accessory muscle use. HEART: Regular rate and rhythm, S1, S2 without murmur, rub or gallop. ABDOMEN: Soft, nontender, nondistended, normoactive bowel sounds, no guarding, no rebound, no hepatosplenomegaly, no masses. EXTREMITIES: 2+ pulses, warm, well-perfused, no edema. NEUROLOGICAL: Cranial nerves II through XII grossly intact. Normal speech, gait not observed. PSYCH: Normal mood, normal affect. SKIN: Warm, dry, normal turgor, no rashes or lesions noted. LABS Laboratory Results - last 24 hr 06/23/19 06/24/19 06/24/19 16:43 06:51 07:15 WBC 11.8 H RBC 4.02 Hgb 12.9 Hct 38.2 MCV 94.9 MCH 32.1 MCHC 33.8 RDW 12.8 Plt Count 474 H MPV 7.4 L Absolute Neuts (auto) 7.8 Neutrophils % 65.8 Lymphocytes % 23.2 Monocytes % 7.6 Eosinophils % 3.1 Basophils % 0.3 Sodium Potassium Chloride Carbon Dioxide Anion Gap BUN Creatinine Est GFR (CKD-EPI)AfAm Est GFR (CKD-EPI)NonAf POC Glucometer 230 70 Random Glucose Calcium 06/24/19 06/24/19 07:15 11:31 WBC RBC Hgb Hct MCV MCH MCHC RDW Plt Count MPV Absolute Neuts (auto) Neutrophils % Lymphocytes % Monocytes % Eosinophils % Basophils % Sodium 138 Potassium 3.9 Chloride 104 Carbon Dioxide 27 Anion Gap 7 L BUN 11.0 Creatinine 1.3 Est GFR (CKD-EPI)AfAm 63.18 Est GFR (CKD-EPI)NonAf 54.51 POC Glucometer 225 Random Glucose 68 L Calcium 8.9 HOSPITAL COURSE: Date of Admission:06/17/19 Date of Discharge: 06/24/19 Minutes to complete discharge: 35 Discharge Summary Reason For Visit: RIGHT LOWER LOBE PNEUMONIA Current Active Problems Diabetes mellitus (Acute) RLL pneumonia (Acute) Condition: Improved - Instructions Diet, Activity, Other Instructions: A prescription has been sent to your pharmacy for augmentin, an antibiotic. Start taking this medication on Thursday, 06/25, and be sure to finish all the medication. You should follow up with your primary care provider within 1 week of your discharge. Return to the emergency department for any new or worsening symptoms. Referrals: Lauryn Cutler MD [Primary Care Provider] - Disposition: HOME - Home Medications Comprehensive Discharge Medication List: Ambulatory Orders Aspirin [ASA -] 81 mg PO DAILY 07/31/12 Atorvastatin Ca [Lipitor] 20 mg PO HS 07/31/12 Insulin (Levemir) [Levemir Flexpen -] 13 units SQ BID 07/31/12 Lisinopril [Prinivil] 20 mg PO DAILY 07/31/12 Sitagliptin Phos/Metformin HCl [Janumet 50-1,000 mg Tablet] 1 each PO BID #0 Amlodipine Besylate 5 mg PO DAILY 06/17/19 Budesonide [Entocort EC] 9 mg PO DAILY 06/17/19 Chlorthalidone 25 mg PO DAILY 06/17/19 Insulin Lispro [Humalog] 4 unit SQ AM 06/17/19 Insulin Lispro [Humalog] 6 unit SQ BID 06/17/19 Mesalamine [Asacol HD -] 1,600 mg PO TID 06/17/19 Omeprazole 40 mg PO DAILY 06/17/19 Amoxicillin/Potassium Clav [Augmentin 875-125 Tablet] 1 each PO BID #8 tablet This patient is new to me today: No Emergency Visit: Yes ED Registration Date: 06/17/19 Care time: The patient presented to the Emergency Department on the above date and was hospitalized for further evaluation of their emergent condition. Critical Care patient: No - Discharge Referral Referred to [facility] Med P.C.: No
== END 2019-06-24 16:17 | disposition home or self-care (01) | DRG 871 ==
LOC: FER 05:26 → FM/S 08:21
PROVIDERS: ADMIT Internal Medicine; ATTEND Nurse Practitioner Acute Care
DX: A41.9 Sepsis, unspecified organism (principal); J18.1 Lobar pneumonia, unspecified organism; E87.2 Acidosis; K50.90 Crohn's disease, unspecified, without complications; R65.20 Severe sepsis without septic shock; I10 Essential (primary) hypertension; E11.9 Type 2 diabetes mellitus without complications; Z79.4 Long term (current) use of insulin; E83.51 Hypocalcemia; E86.0 Dehydration; R19.7 Diarrhea, unspecified; E87.6 Hypokalemia; E83.42 Hypomagnesemia; Z87.891 Personal history of nicotine dependence
CPT/HCPCS: 36415; 36600; 71045-TC-FY; 71275-TC; 74177-TC; 80048; 80053; 81003; 82247; 82550; 82803; 82962; 83605; 83735; 84100; 84484; 85025; 85610; 85730; 87040; 87045; 87046; 87070; 87086; 87205; 87324; 87449; 87804; 87899; 93005; 94640; 94761; 99285-25; J0131; J1644; J7030